=== PATIENT | male | born 1940 | race Caucasian/White ===

== ENCOUNTER → 2016-11-22 | Outpatient (CLI) | payer BC, OTHER ==
[~2016-11-22] MED LIST: ADAL40KI INJ; CALCTAB7 PO; CHOL1000 PO; CHOL100010 PO; FLM4 PO; LINE1TAB2 PO; LOSA100T33 PO; MULT-188 PO; MULT-513 PO; NAPR500T3 PO; OMEP20CA9 PO; PRED-301 PO; RISE1TAB33 PO; ZOLE5INJ IV
[2016-11-22 12:12] LABS: BLOOD UREA NITROGEN 16 mg/dl (7-18); BUN/CREATININE RATIO 17.2 (10-20); CALCIUM 9.2 mg/dl (8.5-10.1); CARBON DIOXIDE 27 mmol/L (21-32); CHLORIDE 105 mmol/L (98-107); CREATININE 0.92 mg/dl (0.60-1.40); GLUCOSE 89 mg/dl (70-99); POTASSIUM 3.8 mmol/L (3.5-5.1); SODIUM 140 mmol/L (136-145)
== END | disposition home or self-care (01) ==
LOC: C.LAB1850 10:44
PROVIDERS: ATTEND Internal Medicine
DX: M81.0 Age-related osteoporosis without current pathological fracture (principal); M06.09 Rheumatoid arthritis without rheumatoid factor, multiple sites

== ENCOUNTER → 2017-01-10 | Outpatient (CLI) | payer BC, OTHER ==
[~2017-01-10] MED LIST changes: +LOSA100T26 PO; -LOSA100T33 PO
[2017-01-10 10:00] LABS: HEMATOCRIT 37.3 % (42-52); MEAN CELL VOLUME 88.2 fL (80-100); MEAN PLATELET VOLUME 9.1 fL (7.4-10.4); PLATELET COUNT 198 K/uL (130-400); RED BLOOD COUNT 4.23 M/uL (4.7-6.1); WHITE BLOOD COUNT 5.17 K/uL (4.8-10.8)
[2017-01-10 10:21] LABS: BASO % 0.4 %; BASO ABS # 0.02 K/uL (0-0.2); COMPLETE YES; EOS % 6.4 %; LYMPH % 51.6 %; LYMPH ABS # 2.67 K/uL (1.2-3.4); MONO % 10.4 %; NEUT % 31.2 %
[2017-01-10 10:29] LABS: BLOOD UREA NITROGEN 18 mg/dl (7-18); CALCIUM 8.7 mg/dl (8.5-10.1); CARBON DIOXIDE 28 mmol/L (21-32); CHLORIDE 103 mmol/L (98-107); CREATININE 0.88 mg/dl (0.60-1.40); GLUCOSE 83 mg/dl (70-99); POTASSIUM 3.5 mmol/L (3.5-5.1); SODIUM 137 mmol/L (136-145)
[2017-01-10 10:39] LABS: ALT/SGPT 26 U/L (12-78); AST/SGOT 23 U/L (15-37); CHOLESTEROL 198 mg/dl (0-200); CHOLESTEROL/HDL RATIO 3.5; HDL CHOLESTEROL 57 mg/dl; LDL CHOLESTEROL CALCULATED 113 mg/dl; TRIGLYCERIDES 142 mg/dl (0-150); VERY LOW DENSITY LIPOPROT CALC 28 mg/dl
== END | disposition home or self-care (01) ==
LOC: C.LAB1850 09:22
PROVIDERS: ATTEND Internal Medicine
DX: E78.5 Hyperlipidemia, unspecified (principal); D64.9 Anemia, unspecified; M06.9 Rheumatoid arthritis, unspecified; E03.9 Hypothyroidism, unspecified

== ENCOUNTER → 2017-02-14 | Outpatient (CLI) | payer BC, OTHER ==
[2017-02-14 16:43] LABS: BLOOD UREA NITROGEN 23 mg/dl (7-18); BUN/CREATININE RATIO 23.3 (10-20); CALCIUM 9.3 mg/dl (8.5-10.1); CARBON DIOXIDE 28 mmol/L (21-32); CHLORIDE 106 mmol/L (98-107); CREATININE 0.98 mg/dl (0.60-1.40); GLUCOSE 113 mg/dl (70-99); POTASSIUM 3.9 mmol/L (3.5-5.1); SODIUM 142 mmol/L (136-145)
== END | disposition home or self-care (01) ==
LOC: C.LAB1850 15:14
PROVIDERS: ATTEND Internal Medicine
DX: I10 Essential (primary) hypertension (principal)

== ENCOUNTER → 2017-03-28 | Outpatient (CLI) | payer BC, OTHER ==
[~2017-03-28] MED LIST changes: -LOSA100T26 PO; +LOSA100T33 PO
== END | disposition home or self-care (01) ==
LOC: C.LAB1850 15:51
PROVIDERS: ATTEND Physician Assistant
DX: L03.115 Cellulitis of right lower limb (principal)

== ENCOUNTER → 2017-04-02 | Outpatient (CLI) | payer BC, OTHER ==
--- NOTE | 2017-04-02 10:24 | DIAGNOSTIC IMAGING REPORT ---
RIGHT FOOT MIN 3 VIEWS ROUTINE CLINICAL HISTORY: RT FOOT CELLULITIS Right pain. Infection. COMPARISON: None. DISCUSSION: Degenerative and postoperative changes throughout. Findings consistent with a fusion of the first metatarsophalangeal joint. Deformity of the distal aspects of the second through fifth metatarsals. Degenerative changes of the interphalangeal joints. No well-defined lytic or blastic process. IMPRESSION: Degenerative and postoperative change. No acute process. Electronically signed by: Tom Martinez M.D. 04/02/2017 10:23 AM Dictated Date/Time: 04/02/2017 10:22 AM
== END | disposition home or self-care (01) ==
LOC: C.RAD1850 10:07
PROVIDERS: ATTEND Physician Assistant
DX: L03.115 Cellulitis of right lower limb (principal)

== ENCOUNTER → 2017-05-08 | Outpatient (CLI) | payer BC, OTHER ==
[~2017-05-08] MED LIST changes: -MULT-513 PO; +OPTIRAY 320 IV PRN; -RISE1TAB33 PO
--- NOTE | 2017-05-08 11:59 | DIAGNOSTIC IMAGING REPORT ---
CT right foot RIGHT LOWER EXTREMITY WITH CLINICAL HISTORY: RIGHT FOOT, CELLULITIS, R/O ABSCESS Right TECHNIQUE: Transaxial acquisition with multi axial reformatted images COMPARISON STUDY: None FINDINGS: Operative changes of the posterior calcaneus. Operative changes of the distal metatarsals with evidence for fusion of the first metatarsophalangeal joint. Moderate generalized soft tissue edematous change. Probable synovitis surrounding regions of the great toe. No evidence for drainable abscess or collection. No evidence for bony destructive process. Postoperative changes consistent with partial resection of the distal aspects of the metatarsals are noted. This has been described previously. No evidence for fracture or dislocation. IMPRESSION: Degenerative and postoperative change throughout. 2. Findings consistent with a soft tissue cellulitis about the great toe with evidence for postoperative fusion of the first metatarsophalangeal joint. 3. No evidence for drainable abscess or collection. 4. No evidence for osteomyelitis based on CT criteria. Electronically signed by: Tom Martinez M.D. 05/08/2017 11:58 AM Dictated Date/Time: 05/08/2017 11:50 AM
== END | disposition home or self-care (01) ==
LOC: C.CTS 11:00
PROVIDERS: ATTEND Internal Medicine Infectious Disease
DX: L03.115 Cellulitis of right lower limb (principal)

== ENCOUNTER → 2017-05-14 | Outpatient (CLI) | payer BC, OTHER ==
[~2017-05-14] MED LIST changes: -CHOL1000 PO; -LINE1TAB2 PO; +LOSA100T26 PO; -LOSA100T33 PO; -OPTIRAY 320 IV PRN
[2017-05-14 16:42] LABS: BASO % 0.5 %; BASO ABS # 0.03 K/uL (0-0.2); COMPLETE YES; EOS % 1.2 %; HEMATOCRIT 40.3 % (42-52); IG% 0.2 %; LYMPH % 26.8 %; LYMPH ABS # 1.72 K/uL (1.2-3.4); MEAN CELL VOLUME 90.6 fL (80-100); MEAN CORPUSCULAR HEMOGLOBIN 29.4 pg (25-34); MEAN CORPUSCULAR HGB CONC 32.5 g/dl (32-36); MEAN PLATELET VOLUME 8.7 fL (7.4-10.4); MONO % 8.1 %; NEUT % 63.2 %; PLATELET COUNT 263 K/uL (130-400); RED BLOOD COUNT 4.45 M/uL (4.7-6.1); WHITE BLOOD COUNT 6.41 K/uL (4.8-10.8)
[2017-05-14 17:03] LABS: ALT/SGPT 25 U/L (12-78); BLOOD UREA NITROGEN 16 mg/dl (7-18); BUN/CREATININE RATIO 17.7 (10-20); C-REACTIVE PROTEIN 1.17 mg/dl (0-0.29); CARBON DIOXIDE 27 mmol/L (21-32); CHLORIDE 105 mmol/L (98-107); CREATININE 0.91 mg/dl (0.60-1.40); GLUCOSE 99 mg/dl (70-99); SODIUM 141 mmol/L (136-145)
[2017-05-14 17:07] LABS: ALB/GLOB RATIO 0.9 (0.9-2); ALKALINE PHOSPHATASE 107 U/L (45-117); AST/SGOT 22 U/L (15-37)
== END | disposition home or self-care (01) ==
LOC: C.LAB1850 15:55
PROVIDERS: ATTEND Physician Assistant
DX: B95.7 Other staphylococcus as the cause of diseases classified elsewhere (principal)

== ENCOUNTER → 2017-06-14 | Outpatient (CLI) | payer BC, OTHER ==
[~2017-06-14] MED LIST changes: +CHOL1000 PO; +LINE1TAB2 PO
[2017-06-14 10:05] LABS: BASO % 0.1 %; BASO ABS # 0.01 K/uL (0-0.2); COMPLETE YES; EOS % 3.5 %; HEMATOCRIT 32.3 % (42-52); IG% 0.1 %; LYMPH % 26.5 %; MEAN CELL VOLUME 90.5 fL (80-100); MEAN CORPUSCULAR HEMOGLOBIN 29.4 pg (25-34); MEAN CORPUSCULAR HGB CONC 32.5 g/dl (32-36); MEAN PLATELET VOLUME 8.5 fL (7.4-10.4); MONO % 7.8 %; PLATELET COUNT 161 K/uL (130-400); RED BLOOD COUNT 3.57 M/uL (4.7-6.1); WHITE BLOOD COUNT 7.17 K/uL (4.8-10.8)
[2017-06-14 10:44] LABS: ALT/SGPT 29 U/L (12-78); AST/SGOT 20 U/L (15-37); BLOOD UREA NITROGEN 17 mg/dl (7-18); BUN/CREATININE RATIO 17.6 (10-20); CALCIUM 8.8 mg/dl (8.5-10.1); CARBON DIOXIDE 28 mmol/L (21-32); CHLORIDE 107 mmol/L (98-107); CREATININE 0.94 mg/dl (0.60-1.40); GLUCOSE 106 mg/dl (70-99); POTASSIUM 3.6 mmol/L (3.5-5.1); SODIUM 140 mmol/L (136-145)
[2017-06-14 10:46] LABS: ALB/GLOB RATIO 0.9 (0.9-2); ALKALINE PHOSPHATASE 98 U/L (45-117); C-REACTIVE PROTEIN 1.59 mg/dl (0-0.29)
== END | disposition home or self-care (01) ==
LOC: C.LAB1850 09:31
PROVIDERS: ATTEND Physician Assistant
DX: L03.115 Cellulitis of right lower limb (principal)

== ENCOUNTER → 2017-06-28 | Outpatient (CLI) | payer BC, OTHER ==
[~2017-06-28] MED LIST changes: -CHOL100010 PO
[2017-06-28 12:35] LABS: BASO % 0.4 %; BASO ABS # 0.03 K/uL (0-0.2); COMPLETE YES; EOS % 2.8 %; HEMATOCRIT 30.9 % (42-52); IG% 0.4 %; LYMPH % 33.5 %; LYMPH ABS # 2.53 K/uL (1.2-3.4); MEAN CORPUSCULAR HEMOGLOBIN 29.2 pg (25-34); MEAN CORPUSCULAR HGB CONC 31.7 g/dl (32-36); MEAN PLATELET VOLUME 9.1 fL (7.4-10.4); MONO % 11.5 %; NEUT % 51.4 %; PLATELET COUNT 177 K/uL (130-400); RED BLOOD COUNT 3.36 M/uL (4.7-6.1); WHITE BLOOD COUNT 7.55 K/uL (4.8-10.8)
[2017-06-28 13:52] LABS: ALT/SGPT 29 U/L (12-78); AST/SGOT 21 U/L (15-37); BLOOD UREA NITROGEN 16 mg/dl (7-18); C-REACTIVE PROTEIN 0.33 mg/dl (0-0.29); CALCIUM 9.2 mg/dl (8.5-10.1); CARBON DIOXIDE 30 mmol/L (21-32); CHLORIDE 104 mmol/L (98-107); GLUCOSE 103 mg/dl (70-99); POTASSIUM 3.6 mmol/L (3.5-5.1); SODIUM 140 mmol/L (136-145)
[2017-06-28 13:54] LABS: ALB/GLOB RATIO 0.9 (0.9-2); ALKALINE PHOSPHATASE 99 U/L (45-117)
== END | disposition home or self-care (01) ==
LOC: C.LAB1850 11:21
PROVIDERS: ATTEND Physician Assistant
DX: L03.115 Cellulitis of right lower limb (principal)

== ENCOUNTER → 2017-07-04 | Outpatient (CLI) | payer BC, OTHER ==
[2017-07-04 11:57] LABS: BASO % 0.2 %; BASO ABS # 0.01 K/uL (0-0.2); COMPLETE YES; EOS % 2.8 %; HEMATOCRIT 31.4 % (42-52); IG% 0.2 %; LYMPH % 37.2 %; LYMPH ABS # 1.99 K/uL (1.2-3.4); MEAN CORPUSCULAR HEMOGLOBIN 30.5 pg (25-34); MEAN CORPUSCULAR HGB CONC 32.5 g/dl (32-36); MEAN PLATELET VOLUME 8.4 fL (7.4-10.4); MONO % 8.8 %; NEUT % 50.8 %; PLATELET COUNT 200 K/uL (130-400); RED BLOOD COUNT 3.34 M/uL (4.7-6.1); WHITE BLOOD COUNT 5.35 K/uL (4.8-10.8)
== END | disposition home or self-care (01) ==
LOC: C.LAB1850 10:06
PROVIDERS: ATTEND Urology
DX: Z00.00 Encounter for general adult medical examination without abnormal findings (principal); E03.9 Hypothyroidism, unspecified; L03.115 Cellulitis of right lower limb

== ENCOUNTER → 2017-07-08 | Outpatient (CLI) | payer BC, OTHER ==
[2017-07-08 11:00] LABS: CHOLESTEROL/HDL RATIO 2.2
== END | disposition home or self-care (01) ==
LOC: C.LAB1850 09:06
PROVIDERS: ATTEND Internal Medicine
DX: E78.5 Hyperlipidemia, unspecified (principal)

== ENCOUNTER 2017-07-12 11:57 | Day surgery (SDC) | payer BC, OTHER ==
--- NOTE | 2017-06-21 11:18 | PAT Medication Instructions ---
Service Date Jun 21, 2017. Current Home Medication List Adalimumab (Humira Pen), 40 MG INJ [id number] Calcium Carbonate-Vitamin D W/ (Caltrate 600 Plus), 1 TAB PO QAM Cholecalciferol (Vitamin D3), 1 TAB PO QAM Hctz/Losartan (Hyzaar 12.5MG/100MG), 1 TAB PO QAM Multiple Vitamins W/ Minerals (Ocuvite), 1 TAB PO QAM Naproxen (Naproxen), 500 MG PO QAM Omeprazole (Prilosec), 20 MG PO QAM Prednisone (Prednisone), 5 MG PO QAM Tamsulosin HCl (Tamsulosin HCl), 0.4 MG PO QPM Zoledronic Acid (Reclast), 5 MG IV DIRECTED Medication Instructions For Your Scheduled Surgery Adalimumab (Humira Pen), 40 MG INJ [id number] (currently on hold until surgery) Naproxen (Naproxen), 500 MG PO QAM (check with surgeon for instructions) Zoledronic Acid (Reclast), 5 MG IV DIRECTED (continue as directed) - Hold the following medications the morning of surgery: Calcium Carbonate-Vitamin D W/ (Caltrate 600 Plus), 1 TAB PO QAM Cholecalciferol (Vitamin D3), 1 TAB PO QAM Hctz/Losartan (Hyzaar 12.5MG/100MG), 1 TAB PO QAM Multiple Vitamins W/ Minerals (Ocuvite), 1 TAB PO QAM - Take the following medications the morning of surgery with a sip of water: Omeprazole (Prilosec), 20 MG PO QAM Prednisone (Prednisone), 5 MG PO QAM - Take the following medications as scheduled the night before surgery: Tamsulosin HCl (Tamsulosin HCl), 0.4 MG PO QPM If you have any questions please call us at [phone] or [phone] or [phone]
--- NOTE | 2017-06-21 12:11 | DIAGNOSTIC IMAGING REPORT ---
CHEST PREADMISSION(PA/LAT) CLINICAL HISTORY: PAT preoperative evaluation COMPARISON STUDY: 10/18/2014 FINDINGS: The bones soft tissues and hemidiaphragms are normal. The cardiomediastinal silhouette is normal. The lungs are clear. The pulmonary vasculature is normal. IMPRESSION: Negative chest. The above report was generated using voice recognition software. It may contain grammatical, syntax or spelling errors. Electronically signed by: Tom Martinez M.D. 06/21/2017 12:10 PM Dictated Date/Time: 06/21/2017 12:09 PM
--- NOTE | 2017-06-21 12:14 | DIAGNOSTIC IMAGING REPORT ---
CERVICAL SPINE 2 OR 3 VIEWS CLINICAL HISTORY: 76 years-old Male presenting with preop, rheumatoid arthritis. TECHNIQUE: Lateral view of the cervical spine in neutral, flexion, and extension positioning were performed. COMPARISON: None. FINDINGS: Normal cervical lordosis. Vertebral bodies maintain essentially normal height. 3 mm of anterolisthesis of C4 on C5 and rectal position that increases to 4 mm on flexion and decreases to 2 mm on extension. No other subluxation. Intervertebral disc height loss at C5-6 and C6-7, where there are the greatest degree of multilevel degenerative changes. No prevertebral soft tissue swelling. IMPRESSION: 3 mm of grade 1 anterolisthesis of C4 on C5 which increases and decreases on flexion and extension views respectively as described above. Electronically signed by: Humberto Frank M.D. 06/21/2017 12:12 PM Dictated Date/Time: 06/21/2017 12:09 PM
[2017-06-21 12:55] LABS: URINE APPEARANCE CLEAR (CLEAR); URINE BILIRUBIN NEG (NEG); URINE COLOR YELLOW; URINE NITRITE NEG (NEG); URINE SPECIFIC GRAVITY 1.014 (1.000-1.030); UROBILINOGEN NEG (NEG)
[2017-06-21 13:07] LABS: MANUAL MICROSCOPIC REQUIRED? NO; REVIEW REQ? NO
[2017-06-21 13:08] LABS: PROTHROMBIN TIME (PATIENT) 10.4 SECONDS (9.0-12.0)
--- NOTE | 2017-07-11 16:33 | History and Physical ---
History & Physical Date Jul 11, 2017. Chief Complaint right foot pain History of Present Illness The patient is a 76 year old male with complaints of right great toe pain. He has a hx of 1st MTP fusion and a Funes procedure of the lesser metatarsals. 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 He is being set up for surgical management of the great toe pain. Past Medical/Surgical History Medical Problems: (1) Diverticulosis Colon (W/O Ment Of Hemorrhage) (2) Hyperlipidemia Nec/Nos (3) Hyperlipidemia Nec/Nos (4) Hypertension Nos (5) Hypothyroidism Nos (6) Rheumatoid Arthritis Allergies Coded Allergies: Cephalexin (Verified Adverse Reaction, Intermediate, eye irritation and vision disturbances, 06/21/17) Home Medications Scheduled Adalimumab (Humira Pen), 40 MG INJ [id number] Calcium Carbonate-Vitamin D W/ (Caltrate 600 Plus), 1 TAB PO QAM Cholecalciferol (Vitamin D3), 1 TAB PO QAM Hctz/Losartan (Hyzaar 12.5MG/100MG), 1 TAB PO QAM Linezolid (Linezolid), 1 TAB PO BID Multiple Vitamins W/ Minerals (Ocuvite), 1 TAB PO QAM Naproxen (Naproxen), 500 MG PO QAM Omeprazole (Prilosec), 20 MG PO QAM Prednisone (Prednisone), 5 MG PO QAM Tamsulosin HCl (Tamsulosin HCl), 0.4 MG PO QPM Zoledronic Acid (Reclast), 5 MG IV DIRECTED Physical Examination Skin: warm/dry, no rash, + pertinent finding (Healed dorsal forefoot incisions on the right foot.) Eyes: normal inspection ENT: normal ENT inspection Head: normocephalic, atraumatic Neck: supple, trachea midline Respiratory/Chest: lungs clear, normal breath sounds, no respiratory distress Cardiovascular: regular rate, rhythm, no murmur Abdomen / GI: normal bowel sounds, non tender Extremities: + pertinent finding (Right foot: hallux interphalangeus. 1st MTP fusion. Tender at the great toe. Limited ROM and strength of the forefoot.) Neurologic/Psych: no motor/sensory deficits, alert, oriented x 3 Diagnosis Right hallux interphalangeus Right foot retained hardware. Plan of Treatment Recommend a right foot 1st great toe removal hardware, closing wedge osteotomy and fusion of the 1st IP Joint, possible autografting of fusion, possible calcaneal autograft harvest, application PRP, possible application Stimulan beads. All potential risks, benefits, complications, alternatives and rehab have been discussed with the patient and the patient wishes to proceed as indicated. He will be scheduled for 07.12.17.
[~2017-07-12] VITALS: Ht 167.6 cm; Wt 85.0 kg
[~2017-07-12 11:57] MED LIST changes: +ATROPINE SULFATE 0.1 MG/ML 5ML SYR IV PRN; +CEFAZOLIN 2000 MG/60 ML D5W IV SCH; +EpHEDrine SULFATE INJ 50 MG/ML AMP IV PRN; +FENTANYL CITRATE INJ 50 MCG/1 ML 2 ML VIAL IV PRN; +HYDROmorphone INJ 1 MG/ML SYR IV PRN; +LACTATED RINGER'S 1000ML 1,000 ML IV SCH; +ONDANSETRON INJ 2 MG/ML 2 ML VIAL IV PRN; +ROPIVACAINE 0.5% 5 MG/ML 30 ML VIAL ONE
--- NOTE | 2017-07-12 12:36 | History & Physical Bridge Note ---
H&P Re-Evaluation Bridge Note: I have examined the patient, reviewed the History & Physical and in the interval since the performance of the History & Physical I have noted the following changes of clinical significance: No changes noted
[2017-07-12 12:41] VITALS: BP 137/74; PULSE 64; TEMP 36.7; O2SAT 96; Ht 167.6 cm; Wt 85.0 kg
[2017-07-12] MEDS ORDERED: FENTANYL CITRATE INJ 50 MCG/1 ML 2 ML VIAL ONE (14:45)
[2017-07-12] MEDS ORDERED: MIDAZOLAM HCL 1 MG/ML 2ML VIAL ONE (14:45)
[2017-07-12] MEDS ORDERED: ONDANSETRON INJ 2 MG/ML 2 ML VIAL ONE (15:11)
[2017-07-12] MEDS ORDERED: DEXAMETHASONE SOD INJ 4 MG/ML VIAL ONE (15:11)
[2017-07-12] MEDS ORDERED: LIDOCAINE HCL 2% 2 ML VIAL (20MG/ML) ONE (15:11)
[2017-07-12] MEDS ORDERED: PROPOFOL IV EMULSION 10 MG/ML 20 ML VIAL IV ONE (15:11)
[2017-07-12] MEDS ORDERED: ROCURONIUM BROMIDE 10 MG/ML 5 ML VIAL IV ONE ×2 (15:11→15:12)
[2017-07-12] MEDS ORDERED: THROMBIN 5000 UNITS KIT ONE (15:52)
[2017-07-12] MEDS ORDERED: CALCIUM CHLORIDE 10% 10 ML SYR ONE (15:52)
[2017-07-12] MEDS ORDERED: BACITRACIN 50000 UNIT VIAL ONE (15:52)
[2017-07-12] MEDS ORDERED: VANCOMYCIN HCL 1000MG/20ML VIAL ONE (16:17)
[2017-07-12] MEDS ORDERED: GENTAMICIN SULFATE 40 MG/ML 2 ML VIAL ONE (16:17)
--- NOTE | 2017-07-12 18:05 | Discharge Instructions ---
Discharge Instructions Date of Service Jul 12, 2017. Admission Reason for Admission: Right Foot Retained Hardware, Hallux Valgus, Osteoarthritis Discharge Discharge Diagnosis / Problem: Right Foot Retained Hardware, Hallux Valgus, Osteoarthritis Discharge Goals Goal(s): Decrease discomfort, Improve function Activity Recommendations Activity Limitations: per Instructions/Follow-up section Weightbearing Status: Right non-weightbearing . Instructions / Follow-Up Instructions / Follow-Up ACTIVITY RECOMMENDATIONS: Limitations: No weight bearing to affected limb at all times. SPECIAL CARE INSTRUCTIONS: * Some drainage onto the dressing is normal and is no cause for alarm. * Some swelling is natural especially after walking. * When resting, keep your foot elevated above the level of your heart. * Call [facility] if you notice: -Increased drainage -Fever over 101 degrees F -Severe constant pain BANDAGE: * Leave bandage/cast in place unless otherwise directed. * Keep bandage/cast dry at all times. FOLLOW UP VISIT WITH DR. ZUNIGA If appointment is not already scheduled: Please call [facility] after you get home today to schedule a follow-up appointment for next week with Dr. Zuniga at . Current Hospital Diet Patient's current hospital diet: Discharge Diet Recommended Diet: AHA Diet (Heart Healthy) Procedures Procedures Performed: Right Foot Removal Retained hardware, Interphalangeal Joint Fusion, Application of Platelet-Rich Plasma; local graft Pending Studies Studies pending at discharge: no Laboratory Results Lipid Panel Test 07/08/17 09:08 Range/Units Triglycerides Level 67 0-150 mg/dl Cholesterol Level 151 0-200 mg/dl HDL Cholesterol 70 mg/dl Cholesterol/HDL Ratio 2.2 LDL Cholesterol, Calculated 68 mg/dl Medical Emergencies . Who to Call and When: Medical Emergencies: If at any time you feel your situation is an emergency, please call 911 immediately. . Non-Emergent Contact Non-Emergency issues call your: Surgeon Call Non-Emergent contact if: temperature is above 101, your pain is not controlled . "Provider Documentation" section prepared by Regulo Zuniga. . VTE Core Measure Inpt VTE Proph given/why not?: Other Anticoagulation (EC ASA 81mg PO daily)
--- NOTE | 2017-07-12 18:08 | [facility] Post Operative Brief Note ---
Immediate Operative Summary Operative Date Jul 12, 2017. Pre-Operative Diagnosis Right foot Interphalangeal joint DJD, Painful retained hardware Post-Operative Diagnosis Right foot Interphalangeal joint DJD, Painful retained hardware Procedure(s) Performed Right foot Interphalangeal Joint Fusion with Application Autograft; Application of Platelet-Rich Plasma Concentrate; Right Foot Removal Retained hardware; Surgeon Dr. Regulo Beavers Director Title Surgeon(s) Abimbola Campbell PAC Estimated Blood Loss 20ml Findings See Dict Specimens A: Explanted hardware Drains None Anesthesia GLMA w/ popliteal block Complication(s) None Disposition Recovery Room / PACU
--- NOTE | 2017-07-12 18:12 | DIAGNOSTIC IMAGING REPORT ---
RIGHT FOOT 2 VIEWS HISTORY: 76 years-old Male hardware removal of the right first digit the foot. COMPARISON: Right foot radiographs 04/02/2017 TECHNIQUE: 2 spot fluoroscopic images of the right foot were obtained utilizing 28.5 seconds of fluoroscopy time. FINDINGS/IMPRESSION: There has been interval removal of the plate and screw fusion hardware of the first metatarsal phalangeal joint. There has been interval placement of a cannulated screw oriented along the longitudinal axis of the first interphalangeal and metatarsal phalangeal joints. Soft tissue swelling is seen about the first digit. Alignment is satisfactory. Chronic changes are seen throughout the remaining metatarsal-phalangeal joints, unchanged. The above report was generated using voice recognition software. It may contain grammatical, syntax or spelling errors. Electronically signed by: Papo Quinn M.D. 07/12/2017 6:11 PM Dictated Date/Time: 07/12/2017 6:09 PM
[2017-07-12] MEDS ORDERED: PERCOCET HOME PACK PO ONE (18:15)
--- NOTE | 2017-07-12 18:43 | Anesthesiology Progress Note ---
Anesthesia Post Op Note Date & Time Jul 12, 2017 at 18:43 Vital Signs Pain Intensity: 0 Vital Signs Past 12 Hours Date Time Temp Pulse Resp B/P (MAP) Pulse Ox O2 Delivery O2 Flow Rate FiO2 07/12/17 18:35 62 14 107/54 96 Oxymask 10 07/12/17 18:25 67 15 114/61 96 Oxymask 10 07/12/17 18:15 36.8 75 17 118/63 96 Oxymask 10 07/12/17 12:41 36.7 64 18 137/74 (95) 96 Room Air Notes Mental Status: alert / awake / arousable, participated in evaluation Pt Amnestic to Procedure: Yes Nausea / Vomiting: adequately controlled Pain: adequately controlled Airway Patency, RR, SpO2: stable & adequate BP & HR: stable & adequate Hydration State: stable & adequate Anesthetic Complications: no major complications apparent
[2017-07-12 19:00] VITALS: BP 113/56; PULSE 68; TEMP 36.3; O2SAT 97
--- NOTE | 2017-07-12 19:05 | DIAGNOSTIC IMAGING REPORT ---
RIGHT FOOT 2 VIEWS CLINICAL HISTORY: 76 years-old Male presenting with post-op Right. TECHNIQUE: Frontal and lateral views of the right foot were obtained. COMPARISON: 04/02/2017. FINDINGS: Overlying plaster splint markedly degrades evaluation of underlying osseous detail. Within this limitation, interval removal of prior plate and screw fixation across the first metatarsophalangeal joint and placement of a leg screw across the interphalangeal joint of the first toe. Apparent osseous fusion of the first metatarsophalangeal joint. Deformities of the intertarsal heads noted. Chronic angular deformity of the neck of the fifth metatarsal may suggest prior fracture. IMPRESSION: Overlying plaster splint markedly degrades evaluation of underlying osseous detail. Postoperative changes of plate and screw fixation removal and lack screw placement across the interphalangeal joint of the first toe. Additional changes as above. Electronically signed by: Humberto Frank M.D. 07/12/2017 7:04 PM Dictated Date/Time: 07/12/2017 7:01 PM
[2017-07-12 19:35] VITALS: BP 129/60; PULSE 67; TEMP 36.4; O2SAT 95
--- NOTE | 2017-07-12 21:50 | OPERATIVE REPORT ---
DATE OF OPERATION: 07/12/2017 PREOPERATIVE DIAGNOSES: 1. Right interphalangeal joint degenerative joint disease. 2. Painful retained hardware of the right foot. POSTOPERATIVE DIAGNOSES: Same. PROCEDURE: 1. Right foot interphalangeal joint fusion with autografting. 2. Removal of hardware, first metatarsophalangeal joint. 3. Application of platelet rich plasma concentrate. SURGEON: Dr. Beavers. AS400 PROGRAMMER: Abimbola Campbell PA-C who was present for patient positioning, sterile prep and drape, management of retractors and instruments. He was present through the critical portions of the case including wound closure, application of sterile dressing and transport of the patient to recovery. ANESTHESIA: General LMA with popliteal block. SPECIMENS: None. DRAINS: None. COMPLICATIONS: None. BLOOD LOSS: 20 mL. PERTINENT HISTORY: This is a 76-year-old gentleman who had a prior first metatarsophalangeal joint fusion. This was successful and had several years of pain for use of his foot. He noticed, however, that his great toe was tipping into the second toe and was causing discomfort from painful rubbing between the first and second toes and difficulty with shoe wear. 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 He had attempted and failed other conservative measures including shoewear modification, activity modification, anti-inflammatories, rest, ice, elevation and lifestyle modification. He had failed all measures and had radiographic evidence of severe degenerative arthritis with deformity of the interphalangeal joint with loss of joint space. Subchondral sclerosis and subchondral cyst. The patient was then scheduled for surgery as indicated. DESCRIPTION OF PROCEDURE: All potential risks, benefits, complications, alternatives, rehab, potential for incomplete relief of symptoms, need for further surgery, DVT, PE, , persistent pain, swelling, scarring, weakness, neurovascular injury, wound complications, hardware failure, nonunion, malunion and bone fracture were discussed with the patient. The patient decided to proceed with the procedure as indicated. After popliteal block and adductor canal anesthetic was then performed in the preoperative holding area, the patient was then taken to the operative suite and placed supine on the operating room table. After review of the consent and identification of proper operative site, the patient was anesthetized and LMA was placed. Right lower extremity was then sterilely prepped and draped in usual fashion, elevated, and exsanguinated with an Esmarch bandage and Esmarch tourniquet was applied over sterile surgical towel at the level of the ankle. Next, a 15 blade scalpel was used to make an incision on the dorsum of the right foot over the first metatarsophalangeal joint at the site of the previous incision. This incision was then deepened through subcutaneous tissue. Meticulous hemostasis was achieved with electrocautery. Full thickness skin flaps were developed. The extensor tendon was then identified and freed, retracted. Next, the dorsal soft tissues and incised including the dorsal joint capsule revealing the plate and screws beneath it. These screws and plate were then removed with a screwdriver. The screw on the medial aspect of the foot was then also removed a small stab incision a 15 blade scalpel. Next after all these removed, these holes were then carefully curetted with a small curette and irrigated until clear with sterile normal saline with bacitracin. Next, the incision was then carried distally over the interphalangeal joint. The extensor tendon was then carefully retracted and protected and its insertion was then protected on the distal phalanx. The joint was then prepared using curette and rongeurs to remove the residuals of articular cartilage and remove any bone down to subchondral bone. This was then saved for a bone graft. This was irrigated with sterile normal saline and bacitracin. Next, the arthrodesis site was then carefully fashioned to the correct angulation. This was removed the hallux interphalangeus from the great toe. Initial consideration was made for osteotomy; however, in this case more bone was resected from the medial aspect to straighten the great toe into more appropriate anatomic alignment. Next, the joint surfaces were then drilled with a small 1.6 mm drill bit, irrigated with sterile normal saline and bacitracin and then fish scaled with a small metatarsal osteotome and mallet. Next, the patient's venous blood was then harvested in and out for platelet rich plasma concentrate and placed on the back table on a sterile container. Next, the 1.25 mm guide pin for the 4.0 cannulated screw set was then used to stabilize the interphalangeal joint, autograft was impacted into the fusion site and then a 50 mm long thread x 4.0 mm cannulated screw was then driven into the distal aspect of the great toe to the distal phalanx to stabilize and compress the interphalangeal joint and the bone graft. Platelet rich plasma concentrate was then placed into the fusion site and then injected around the flor-incisional tissues. This was then followed by closure of the medial and lateral fibers of the interphalangeal joint and the insertion site of the extensor hallucis longus. Next, the skin was then closed using 4-0 nylon sutures and then platelet rich plasma concentrate was injected into the soft tissues. Next, the sterile compressive forefoot dressing and bulky posterior splint was applied overwrapped with an Yanick wrap. Tourniquet was released, the patient was awakened and taken to recovery in stable condition. NOTE: The spinal radiographs were obtained prior to application of the soft tissue dressing and splint. I attest to the content of the Intraoperative Record and any orders documented therein. Any exception s are noted below.
== END 2017-07-12 20:00 | disposition home or self-care (01) ==
LOC: C.ACU 11:57
PROVIDERS: ATTEND Orthopaedic Surgery Sports Medicine
DX: M20.61 Acquired deformities of toe(s), unspecified, right foot (principal); M19.071 Primary osteoarthritis, right ankle and foot; T84.84XD Pain due to internal orthopedic prosthetic devices, implants and grafts, subsequent encounter; Y83.1 Surgical operation with implant of artificial internal device as the cause of abnormal reaction of the patient, or of later complication, without mention of misadventure at the time of the procedure; D64.9 Anemia, unspecified; I10 Essential (primary) hypertension
CPT/HCPCS: 0232T; 20680; 28755

== ENCOUNTER → 2018-02-12 | Outpatient (CLI) | payer BC, OTHER ==
[~2018-02-12] MED LIST changes: -ADAL40KI INJ; -ATROPINE SULFATE 0.1 MG/ML 5ML SYR IV PRN; -CEFAZOLIN 2000 MG/60 ML D5W IV SCH; -EpHEDrine SULFATE INJ 50 MG/ML AMP IV PRN; -FENTANYL CITRATE INJ 50 MCG/1 ML 2 ML VIAL IV PRN; -HYDROmorphone INJ 1 MG/ML SYR IV PRN; -LACTATED RINGER'S 1000ML 1,000 ML IV SCH; -LOSA100T26 PO; +LOSA100T33 PO; -NAPR500T3 PO; -ONDANSETRON INJ 2 MG/ML 2 ML VIAL IV PRN; -ROPIVACAINE 0.5% 5 MG/ML 30 ML VIAL ONE
[2018-02-12 12:57] LABS: CALCIUM 9.1 mg/dl (8.5-10.1); CREATININE 0.81 mg/dl (0.60-1.40)
[2018-02-15 05:22] LABS: QUANTIF MITOGEN-NIL 8.04 IU/ML; QUANTIFERON NEGATIVE (NEGATIVE); QUANTIFERON NIL 0.25 IU/ML
== END | disposition home or self-care (01) ==
LOC: C.LAB1850 11:00
PROVIDERS: ATTEND Internal Medicine
DX: M06.09 Rheumatoid arthritis without rheumatoid factor, multiple sites (principal); M81.0 Age-related osteoporosis without current pathological fracture

== ENCOUNTER → 2018-02-25 | Outpatient (CLI) | payer BC, OTHER ==
[2018-02-25 10:16] LABS: HEMATOCRIT 37.6 % (42-52); HEMOGLOBIN 12.5 g/dL (14.0-18.0); MEAN CELL VOLUME 87.4 fL (80-100); MEAN CORPUSCULAR HEMOGLOBIN 29.1 pg (25-34); MEAN CORPUSCULAR HGB CONC 33.2 g/dl (32-36); MEAN PLATELET VOLUME 8.9 fL (7.4-10.4); PLATELET COUNT 209 K/uL (130-400); RED CELL DISTRIBUTION WIDTH CV 14.1 % (11.5-14.5); RED CELL DISTRIBUTION WIDTH SD 45.2 fL (36.4-46.3); WHITE BLOOD COUNT 4.64 K/uL (4.8-10.8)
[2018-02-25 10:49] LABS: ALBUMIN 3.3 gm/dl (3.4-5.0); ALT/SGPT 25 U/L (12-78); AST/SGOT 21 U/L (15-37); BLOOD UREA NITROGEN 18 mg/dl (7-18); CARBON DIOXIDE 29 mmol/L (21-32); CREATININE 0.89 mg/dl (0.60-1.40); GLUCOSE 86 mg/dl (70-99); POTASSIUM 3.5 mmol/L (3.5-5.1); SODIUM 140 mmol/L (136-145)
[2018-02-25 11:00] LABS: ALKALINE PHOSPHATASE 59 U/L (45-117); CHOLESTEROL 191 mg/dl (0-200); LDL CHOLESTEROL CALCULATED 110 mg/dl; TOTAL PROTEIN 7.1 gm/dl (6.4-8.2)
== END | disposition home or self-care (01) ==
LOC: C.LAB1850 09:35
PROVIDERS: ATTEND Internal Medicine
DX: E78.5 Hyperlipidemia, unspecified (principal); I10 Essential (primary) hypertension; E03.9 Hypothyroidism, unspecified

== ENCOUNTER → 2018-03-10 | Outpatient (CLI) | payer BC, OTHER | END | disposition home or self-care (01) | LOC: C.MAMM 11:17 | PROVIDERS: ATTEND Internal Medicine | DX: M81.0 Age-related osteoporosis without current pathological fracture (principal) ==

== ENCOUNTER 2021-01-11 07:03 | Observation (INO) ==
[2021-01-11] MEDS ORDERED: niCARdipine HCL INJ 2.5 MG/ML 10 ML AMP ONE (07:30)
[2021-01-11] MEDS ORDERED: HEPARIN (PORCINE) 1000 UNIT/ML 10 ML (CATH LAB USE ONLY) ONE ×2 (07:30→10:54)
[2021-01-11] MEDS ORDERED: MIDAZOLAM HCL 1 MG/ML 2ML VIAL ONE ×3 (07:30→10:07)
[2021-01-11] MEDS ORDERED: fentaNYL citrate 100 MCG/2 ML VIAL ONE ×2 (07:30→10:06)
[2021-01-11] MEDS ORDERED: NITROGLYCERIN/D5W 100MCG/ML 20ML SYR ONE (07:31)
--- NOTE | 2021-01-11 07:57 | History & Physical Report ---
Date of Service January 11, 2021 Assessment & Plan (1) Abnormal stress echo: (1) Abnormal stress echo: (2) Chest pain: (3) Aortic regurgitation: Plan - Kilo Hyatt MD: 1. Abnormal dobutamine echocardiogram: with transient ischemic dilation on his dobutamine echocardiogram he was suspected of having severe ischemia. He was started on medical therapy with metoprolol. He did have some lower heart rates which have not produced symptoms. However, he continues to have symptoms of exertional chest pressure and some trepidation about continuing exercise or exercising more vigorously. Again, we discussed options for treatment and evaluation. He is very concerned that he has an element of coronary artery disease that is not well characterized on his stress testing. He is concerned about recurrent symptoms on medical therapy. We did discuss intensifying his medical regimen or performing coronary angiography. He would prefer to perform angiography. We will again approaches insurance company about approval. He will continue aspirin and metoprolol currently. 2. chest pain: Primarily exertional. Concern for angina given his abnormal dobutamine echocardiogram. 3. Aortic insufficiency: Mild. This can be monitored over time. History of Present Illness Chief Complaint: chest [ain Primary Care Provider: Richardson Becerra MD the patient is a 72-year-old gentleman without a known history of cardiac disease who originally underwent dobutamine echocardiography for symptoms of exertional chest pain. His stress test was not normal. He did have transient ischemic dilation on echo cardiography suggestive of severe coronary disease. He was started on medical therapy. The plan was for coronary angiography, but his insurance provider required a trial of medical therapy 1st. Patient returns today to discuss recurrent symptoms and abnormal blood pressure and pulse readings. He was started on metoprolol. He has a watch track of his heart rates. He has noted some fluctuations in his blood pressure but more concerning to him were low heart rate readings in the sap basis architect hours. During the da ys heart rates appear to be normal. He did not describe symptoms of dizziness or lightheadedness. No presyncope. No palpitations. He does have some symptoms of exertional chest discomfort. He walks regularly around the [employer] [facility] [employer]. With rapid walking he does have symptoms of exertional chest pressure which resolved as he reduces his pace. He has some concerns about exercising more vigorously. No rest symptoms. Allergies Allergy/AdvReac Type Severity Reaction Status Date / Time alendronate sodium Allergy Verified 12/06/20 10:43 cephalexin AdvReac Intermediate eye Verified 12/06/20 10:43 irritation and vision disturbances Home Medications Medication Instructions Recorded Confirmed Type cholecalciferol (vitamin D3) 50 2,000 unit PO .Take 1 tablet daily 05/19/19 01/11/21 History mcg (2,000 unit) tablet tab calcium carbonate 600 mg (1,500 600 tab PO .TAKE 1 TABLET DAILY. 07/15/19 01/11/21 History mg)-vitamin D3 200 unit tablet tab multivitamin 1 tab PO DAILY 07/15/19 01/11/21 History vit C 50 mg-E 15 unit-zinc cit 4.5 2 tab PO DAILY 07/15/19 01/11/21 History mg-lutein 2.5 mg-zeaxan chew tablet hydrochlorothiazide 12.5 mg tablet 12.5 mg PO DAILY #90 tab 02/24/20 01/11/21 Rx losartan 100 mg tablet 100 mg PO DAILY #90 tab 02/24/20 01/11/21 Rx tamsulosin 0.4 mg capsule 0.4 mg PO DAILY #90 cap 05/04/20 01/11/21 Rx omeprazole 20 mg capsule,delayed 20 mg PO DAILY #90 cap 06/20/20 01/11/21 Rx release lifitegrast 5 % eye drops in a 1 drp OPHTHALMIC (EYE) BID 09/16/20 01/11/21 History dropperette naproxen 500 mg tablet 500 mg PO DAILY #90 tab 09/16/20 01/11/21 Rx prednisone 5 mg tablet 5 mg PO DAILY #90 tab 09/16/20 01/11/21 Rx aspirin 81 mg tablet,delayed 81 mg PO DAILY 10/24/20 01/11/21 History release metoprolol succinate 25 mg 12.5 mg PO DAILY #30 tab 10/24/20 01/11/21 Rx tablet,extended release 24 hr adalimumab 40 mg/0.8 mL See Rx Instructions SQ .COMPLEX #3 12/22/20 01/11/21 Rx subcutaneous syringe kit ml Past Med/Surg History Medical History Rheumatoid arthritis Steroid-induced osteoporosis Surgical History H/O inguinal hernia repair History of appendectomy History of tonsillectomy and adenoidectomy Family History Mother Colon cancer Congestive heart failure Stroke syndrome Father Diabetes Son Diabetes Daughter Breast cancer Grandfather (Paternal) Myocardial infarction Denies family history of Ovarian cancer Prostate cancer Social History Smoking Status: Former smoker Second Hand Exposure: No; Hx Alcohol Use: No Hx Substance Use: No Preferred Language: [place] Communication Ability: Effective Visual Impairment: No Limitations Hearing Ability: Use of Hearing Aid Range Master Required: No Beliefs That Will Affect Care: None marital status: / Current Living Situation: Alone current occupational status: retired Other Information That Helps Us Care for You: No Feels Safe at Home: Yes Safety Concerns: Feels Safe At This Time Childhood Exposure to Second-Hand Smoke: No Dental Care, Regularly: Yes Physical Activity Frequency: Does not Exercise Seatbelt Use: always Sunscreen Use: No Assistive Devices: Glasses, Hearing Aid - Left and Hearing Aid - Right Review of Systems Review of Systems: per HPI Physical Exam Physical Exam: Alert.Oriented. Normal respiratory effort Regular rhythm and normal heart rate No edema Results & Data Results & Data ([facility]) Vital Signs (Past 12 Hours) Vital Signs Temp Pulse Resp BP Pulse Ox 01/11/21 07:15 36.6 C 62 20 150/87 H 97
--- NOTE | 2021-01-11 07:59 | Pre Anesthesia Assessment ---
Date of Service January 11, 2021 Pre Sedation Assessment Vital Signs Temp Pulse Resp BP Pulse Ox 01/11/21 07:15 36.6 C 62 20 150/87 H 97 Cardiovascular + regular rate and + regular rhythm Respiratory + respiratory effort normal Pre-Sedation Airway Assessment Smoking Status: Former smoker Hx Sleep Apnea: No Hx Difficult Intubation: No Short, Thick Neck: No Thyromental Distance: > or= 3.5 Finger Breadths Oral Cavity: + WNL Mallampati Class: III ASA: ASA3 NPO Status Date of Last Intake of Fluids: 01/10/21 Time of Last Intake of Fluids: 22:00 Date of Last Intake of Solid Food: 01/10/21 Time of Last Intake of Solid Foods: 22:00 Procedure Planning Contraindications for Sedation: none Current Medications Reviewed: Yes Notes The planned sedation has been discussed with the patient. Informed Consent was obtained. I have identified the patient, determined the appropriateness of sedation and have assessed the patient immediately prior to the procedure. All medicine(s) and interventions are by my order.
--- NOTE | 2021-01-11 11:14 | Cardiac Catheterization ---
[facility] Data: Cement Paver Cardiac Status Clinical evaluation leading to the procedure CAD Presenation: Positive Stress Test Diagnostic Physicians Name: Kilo Hyatt MD Closure Device Recommendations: PCI without planned CABG Cardiac Cath Procedure Full Procedure Date January 11, 2021 Pre-Procedure Diagnosis Pre-Procedure Diagnosis: Positive Stress Test AUC Score AUC Score: 7 Post-Procedure Diagnosis Post-Procedure Diagnosis: Severe CAD Procedure(s) Performed Procedure(s) Performed: Coronary Angiography and Left Heart Cath Flame Cutting Supervisor Kilo Hyatt MD Utility Arborist(s) none Estimated Blood Loss Estimated Blood Loss: 20cc Medication(s) Medication(s): Fentanyl, Heparin, Lidocaine 1%, Nicardipine, Nitroglycerin and Versed Summary of Findings Procedure performed: Left heart catheterization, selective coronary angiography Staff integrity assessor: Kilo Hyatt MD Indication: The patient is a 80-year-old gentleman who has been experiencing symptoms of exertional chest discomfort. He did undergo outpatient stress testing which was abnormal. Medical therapy was tried prior to referral for coronary angiography. Procedure in detail: The patient was informed of the risk benefits and alternatives to the intended procedure. He understood and wished to proceed. He was taken to the cardiac catheterization suite in a fasting state. Conscious sedation was administered per protocol and the patient was monitored electrocardiographically throughout today's procedure. The right radial area was prepped and draped in usual sterile fashion. This area was anesthetized using subcutaneous ministration of a lidocaine solution. Right radial artery was accessed using Seldinger technique and sheath was placed over guidewire at the site. The sheath was used to felt a passage of the cardiac catheters in attempt to perform selective coronary angiography. However, due to tortuosity in the right subclavian the coronaries could not be engaged from this route. Catheters and sheath were removed from the site and hemostasis was achieved using manual pressure. Left radial artery was subsequently prepped and draped in usual sterile fashion. Area over the left radial artery was subsequently anesthetized using subcutaneous ministration of lidocaine solution. A left lateral artery was then accessed using Seldinger technique and a sheath was placed over guidewire at this site. The sheath was used to facilitate passage of a guidewire and catheter. However, there appeared to be significant tortuosity of the brachial artery which prevented passage of the catheter. Catheter in guidewire were removed. Sheath was also removed and hemostasis was achieved at the left radial artery using manual pressure. The right femoral area was prepped and draped in usual sterile fashion. This area was anesthetized using subcutaneous ministration of lidocaine solution. The right femoral artery was subsequently accessed using modified Seldinger technique and a sheath was placed over guidewire at this site. The sheath was used to facilitate passage of the cardiac catheters for selective coronary angiography. Angiography was obtained in multiple orthogonal views prior to removal of the catheters. At 1 point the 5 [place] 4 catheter became kinked. The entire sheath and catheter had to be removed through the femoral artery at this point. This sheath was cut and a guidewire was placed through the remaining sheath to maintain access. A larger sheath was placed over this guidewire in order to improve hemostasis. There was a small hematoma formation at this point. Manual pressure was also employed in order to reduce bleeding at this site prior to continuation of the procedure. With the exception of this problem there were no additional complications. Based on the results of his angiography he was referred for percutaneous intervention. Equipment used: 5 Dutch 3 DRC 5 Dutch [place] 2 Findings Coronary angiography Left main: The left main was somewhat patulous and very short. It did bifurcate into the left circumflex and left anterior descending artery. Left anterior descending colon left anterior descending appeared to be subtotally occluded. There was a very large diagonal branch with a complex lesion proximal portion. This was estimated at 90%. The actual LAD appeared to be subtotally occluded and not fully filled with contrast. Overall it appeared to be a small vessel and likely fills from left to left collaterals. Left circumflex: Left circumflex was a dominant vessel. He did have a discrete 70% stenosis at the origin of the left-sided PDA. The remaining vessel had luminal irregularities and was quite tortuous but no other discrete lesions. Right coronary artery: Nondominant. 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 Any exceptions are noted below. [facility] Card Cath Procedure Codes Cardiac Catheterization Procedure 1: Cardiovascular Cath Procedures: 24955 Coronaries and LHC (+/-LV) Moderate Sedation Procedure 1: Sedation/Anesthesia: 45126 Mod Sedation by the same physician;Init15 Min Child Age 5 & Up Procedure 2: Sedation/Anesthesia: 32700 Mod Sedation by the same physician; Ea [id number] Minutes PG Care Time/CCT Total # of Minutes Spent Total Time Spent with Patient: Total time spent is greater than 50% in coordination of care (as documented) at patient's floor/unit and/or counseling patient:
[2021-01-11] MEDS ORDERED: CLOPIDOGREL BISULFATE 300 MG TAB ONE (11:17)
[2021-01-11] MEDS ORDERED: ONDANSETRON INJ 2 MG/ML 2 ML VIAL IV PRN (11:31)
[2021-01-11] MEDS ORDERED: NITROGLYCERIN SL 0.4 MG/TAB TAB SL PRN (11:31)
--- NOTE | 2021-01-11 11:31 | Post Anesthesia Assessment ---
Date of Service January 11, 2021 Post Sedation Assessment Vital Signs Temp Pulse Resp BP Pulse Ox 01/11/21 07:15 97.9 F 62 20 150/87 H 97 Recovery Score Activity: Moves 4 extremities Respiration: Deep Breath/Cough Circulation: +/-20% PreAnes Value Consciousness: Fully Awake Oxygen Saturation: O2 needed for >90% Discharge Sedation Level of Care: Fast Track Phase II Post Sedation Plan On clinical assessment, the patient appears to have tolerated the sedation without complications. Patient is recovering as anticipated. Patient will continue to be monitored by nursing and may be discharged when sedation discharge criteria are met per below protocol. Upon Completions of procedure up to 15 minutes continue every 5 minute vital signs and the P.A.R. score; then discharge to a Phase I or Fast Track to Phase I I per the following guidelines: * Discharge Patient to appropriate Phase II area if PAR is 8 or greater or return to pre- procedure baseline. The post - procedure orders will be as directed. * If PAR score is less than 8 or not return to pre-procedure baseline then patient will follow Phase I monitoring till PAR is reached for Phase II. The Phase I may be done in procedure room or may call to secure a Phase I area. * If naloxone or flumazenil are used for reversal, hold in Phase I for continued monitoring from when last reversal dose was given for a minimum of 60 minutes or longer pending the nurse and/or physician discretion of patient condition before discharge to Phase II. Please call the Sedation Physician to re-evaluate and complete post-note for discharge to Phase II area. Do NOT discharge from procedure sedation or Phase 1 until post- sedation evaluation note is complete by procedure /sedation MD Sedation Discharge Instructions to be given to the patient at discharge to home.
[2021-01-11] MEDS ORDERED: SODIUM CHLORIDE 0.9% 1000ML 1,000 ML IV SCH (11:45)
--- NOTE | 2021-01-11 12:09 | Cardiac Catheterization ---
[facility] Data: Chief Medical Technologist Cardiac Status Clinical evaluation leading to the procedure CAD Presenation: Positive Stress Test and Unstable angina Anginal Classification: CCS III Heart Failure: No Cardiogenic Shock within 24 Hours: No Cardiac Arrest within 24 Hours: No Imaging Studies Past 6 Months: Yes Stress Studies Past 6 Months: Yes Stress Testing w/SPECT MPI: Risk/Extent of Ischemia (High) Diagnostic Physicians Name: Kilo Diana MD Status: Elective Closure Device Percutaneous Entry Location: Femoral Closure Device: Angio-Seal Recommendations: PCI without planned CABG PCI Indication: + Stress Test Lesion Segment Name: proximal diagonal Culprit Artery: Yes Stenosis Prior to Rx (%): 90 Chronic Total Occlusion: No IVUS: No FFR: No Pre-Procedure YOANDY Flow: 3 Previously Treated Lesion: No Lesion Complexity: Non-High/Non-C Lesion Length (mm): 15 Thrombus Present: No Bifurcation Lesion: No Guidewire Across Lesion: Stenosis Post-Procedure (%): 0 Post-Procedure YOANDY Flow: 3 Yes Intraprocedure Events Significant Disection: No Perforation: No Cardiac Cath Procedure Full Procedure Date January 11, 2021 Pre-Procedure Diagnosis Pre-Procedure Diagnosis: Positive Stress Test AUC Score AUC Score: 7 Post-Procedure Diagnosis Post-Procedure Diagnosis: Severe CAD and Successful PCI Procedure(s) Performed Procedure(s) Performed: Coronary Angiography and Drug Eluting Stent Client Delivery Specialist Kilo Diana MD Wildlife Conservation Officer(s) [place] Estimated Blood Loss Estimated Blood Loss: 20cc Medication(s) Medication(s): Clopidogrel, Fentanyl, Heparin, Lidocaine 1%, Nicardipine, Nitroglycerin and Versed Summary of Findings Indication: Angina, abnormal stress test Access: 6 Fr 45 cm destination sheath due to tortuosity in the right common femoral artery Catheters: EBU 3.75 guide Findings: For full details of patient's coronary angiography please see cath report dictated by Dr. Hyatt. Briefly, patient found to have a chronically occluded mid LAD that fills via collaterals and a large diagonal with an 80% proximal stenosis. -- PCI -- Antithrombotic therapy: Heparin, clopidogrel Procedure: Left main cannulated with EBU 3.75 guide Mid LAD CHEESE MAKER appeared short with questionable channel. Attempt made to wire across occlusion with whisper, towboat pilot 50 wire and aid of OTW support balloon. Occlusion appeared flush with LAD and never able to make progress crossing occlusion and attention turned to diagonal. Volleyball Assistant Coach 50 wire passed across diagonal lesion into distal vessel Diagonal lesion predilated with 2.75 compliant balloon Dilated lesion stented with 3.0 x 18 mm [place] drug-eluting stent Stent post-dilated with three-point noncompliant balloon IC vasodilators administered for spasm Post procedure YOANDY 3 flow, stent well expanded with minimal residual stenosis and no apparent cardiac complications. Arterial Closure: TR band Summary: 1. Successful PCI of proximal large D1 with 3.0 x 18 mm [place] drug-eluting. 2. Mid LAD chronic total occlusion fills via left to left collaterals. Unsuccessful attempt to cross antegrade. Recommendations: To PCU for continued monitoring Loaded with clopidogrel 600 mg in Chief Medical Technologist Continue dual-antiplatelet therapy for at least 1 year Consult cardiac Rehab Continue antianginal therapy. If refractory symptoms in the future consider CTOPCI at tertiary center versus CABG evaluation for chronically occluded LAD. Hemodynamics Rest Ao:: 133/79/106 Final Ao: 143/75/104 LV: -- Recommendations Recommendations: PCI without planned CABG Specimens Specimens: None Radiation Exposure (mGy) 867 Contrast (mls) 50 Drains Drains: none Anesthesia moderate Procedural Complication(s) None Development of small femoral hematoma during sheath exchange Disposition PCU I attest to the content of the Intraoperative Record and any orders documented therein. Any exceptions are noted below. [facility] Card Cath Procedure Codes Moderate Sedation Procedure 1: Sedation/Anesthesia: 06495 Mod Sedation by the same physician; Ea [id number] Minutes Stenting Procedure 1: Cardiovascular Stent Procedures: 74195 Perc transcatheter placement of intracoronary stent(s), with ang PG Care Time/CCT Total # of Minutes Spent Total Time Spent with Patient: Total time spent is greater than 50% in coordination of care (as documented) at patient's floor/unit and/or counseling patient:
[2021-01-11] MEDS: ACETAMINOPHEN 325 MG TAB PO PRN ×2 (13:00→21:19)
[2021-01-11] MEDS ORDERED: NITROGLYCERIN 2% OINTMENT 30GM TUBE EXT STA (13:11)
[2021-01-11] MEDS ORDERED: NITROGLYCERIN 2% OINTMENT 30GM TUBE ONE (13:13)
[2021-01-11] MEDS ORDERED: LOSARTAN POTASSIUM 50 MG TAB PO ONE (15:30)
--- NOTE | 2021-01-11 17:03 | Electrocardiogram Report ---
Test Reason : Blood Pressure : / mmHG Vent. Rate : 053 BPM Atrial Rate : 053 BPM P-R Int : 168 ms QRS Dur : 092 ms QT Int : 466 ms P-R-T Axes : 049 002 -08 degrees QTc Int : 437 ms Sinus bradycardia Abnormal ECG When compared with ECG of 21-JUN-2017 11:32, No significant change was found Confirmed by Kilo Hyatt ([id number]) on 01/11/2021 5:02:45 PM Referred By: Arnoldo Hyatt Confirmed By:Hernando Hyatt
[2021-01-12] MEDS ORDERED: SODIUM CHLORIDE 0.65% NA SOLN 45 ML (OCEAN) ONE (04:44)
[2021-01-12 07:08] LABS: Basophils # (auto) 0.02 K/uL (0-0.2); Basophils % (auto) 0.3 %; Eosinophils # (auto) 0.24 K/uL (0-0.5); Eosinophils % (auto) 3.5 %; Hematocrit (blood only) 32.5 % (42-52); Hemoglobin 10.6 g/dL (14.0-18.0); Lymphocytes # (auto) 1.29 K/uL (1.2-3.4); Lymphocytes % (auto) 18.6 %; Mean Corpuscular Hemoglobin 28.4 pg (25-34); Mean Corpuscular Hgb Conc 32.6 g/dL (32-36); Mean Corpuscular Volume 87.1 fL (80-100); Mean Platelet Volume 8.5 fL (7.4-10.4); Monocytes % (auto) 10.1 %; Neutrophils # (auto) 4.68 K/uL (1.4-6.5); Neutrophils % (auto) 67.5 %; Platelet Count 233 K/uL (130-400); RDW Coefficient of Variation 14.1 % (11.5-14.5); RDW Standard Deviation 44.5 fL (36.4-46.3); Red Blood Count 3.73 M/uL (4.7-6.1); White Blood Count 6.93 K/uL (4.8-10.8)
[2021-01-12 07:32] LABS: BUN Creatinine Ratio 18.6 (10-20); Calcium 8.9 mg/dl (8.5-10.1); Creatinine Clr Calc Pharmacy 81.9 ml/min; Est GFR (African American) 101.3; Est GFR (Non-African American) 87.4; Potassium 3.8 mmol/L (3.5-5.1)
[2021-01-12] MEDS ORDERED: ASPIRIN 81 MG ECTAB PO SCH (09:00)
[2021-01-12] MEDS ORDERED: CALCIUM 600MG + VIT D 400 IU TAB PO SCH (09:00)
[2021-01-12] MEDS ORDERED: CEROVITE ADV FORMULA TAB PO SCH (09:00)
[2021-01-12] MEDS ORDERED: TAMSULOSIN HCL 0.4 MG CAP PO SCH (09:00)
[2021-01-12] MEDS ORDERED: DOCUSATE CALCIUM 240 MG CAPSULE PO ONE (09:00)
[2021-01-12] MEDS ORDERED: LOSARTAN POTASSIUM 50 MG TAB PO SCH (09:00)
[2021-01-12] MEDS ORDERED: predniSONE 5 MG TAB PO SCH (09:00)
[2021-01-12] MEDS ORDERED: MULTIVITAMIN TAB PO SCH (09:00)
[2021-01-12] MEDS ORDERED: PANTOprazole 40 MG TAB PO SCH (09:00)
[2021-01-12] MEDS ORDERED: hydroCHLOROthiazide 25 MG TAB PO SCH (09:00)
[2021-01-12] MEDS ORDERED: CHOLECALCIFEROL 1,000 UNITS 25 MCG TAB PO SCH (09:00)
[2021-01-12] MEDS ORDERED: METOPROLOL SUCC 25MG EXT REL TAB PO SCH (09:00)
[2021-01-12] MEDS ORDERED: CLOPIDOGREL BISULFATE 75 MG TAB PO SCH (09:00)
--- NOTE | 2021-01-12 16:42 | Discharge Summary ---
Date of Service January 12, 2021 Admission HPI Per Admitting Provider The patient is a 72-year-old gentleman with a history of exertional chest discomfort and abnormal stress test. He was tried on medical therapy but continued to have symptoms. He was therefore advised to consider coronary angiography for additional diagnosis. Principal Diagnosis q Discharge Exam On the day of discharge the right groin area had a small hematoma. There was no bruit on auscultation. Minimal ecchymosis. Both radial arteries were palpable. There is good perfusion of both hands. Discharge Data Allergies Allergy/AdvReac Type Severity Reaction Status Date / Time alendronate sodium Allergy Verified 12/06/20 10:43 cephalexin AdvReac Intermediate eye Verified 12/06/20 10:43 irritation and vision disturbances Consultations 01/11/21 11:38 Consult Cardiac Rehabilitation Routine Procedures Performed Operation Date: 01/11/21 08:00 Actual Procedures p Cath, Left with Cors and Vent - Arnoldo Hyatt MD s Drug Eluting Stent SGl Vessel - Arnoldo Diana MD s Cineradiography w/Routine Exam - Arnoldo Hyatt MD Ordered Studies 01/11/21 06:48 CL Cath Imgs for PACS use only Routine Hospital Course (1) Coronary artery disease: On the day of admission the patient underwent coronary angiography. There was significant difficulty manipulating catheters via the radial approach. He had significant tortuosity in the right subclavian artery which prevented cannulation of the coronary arteries. A cardiac catheter could not be passed proximal to the left brachial artery. Right femoral arterial access was employed for diagnostic angiography and percutaneous intervention involving a large diagonal branch. The patient did have a development of a small hematoma at the right groin access site. However, on the day of discharge he was ambulatory without significant symptom. There is no evidence of active bleeding or other complication at the access sites. Total Time Total Time Spent Total Time Spent (In Minutes): 15 Total Time Includes: Examination of the Patient, Discharge Planning, Medication Reconciliation and Communication With Other Providers Discharge Plan Discharge Items Patient Disposition: Home - Self-Care Reason For Visit: Abnormal Stress Test,ANGINA Discharge Diagnosis: Angina Activity: Per Instructions section Activity Comment: NO lifting >10# or straining for 7 days Bathing Comment: no soaking groin, can bathe normally Driving/Machine Use: Resume 1 day after discharge Non-emergency contact: Spear Fisher Call non-emergency contact if: you have any medication questions, your symptoms worsen and your pain is not controlled Follow-up/Referrals: Rcihardson Becerra MD [Primary Care Provider] - 01/20/21 4:00 pm Diet: Heart Healthy Addtl Attending Provider Instructions: none Pending Studies at Discharge: No Stand-Alone Forms: My [facility] [email or web address], Smoking Cessation Medications and DC Order Prescriptions: New clopidogrel 75 mg Tablet 75 mg PO QAM Qty: 90 RF: 3 Continued losartan 100 mg tablet 100 mg PO DAILY Qty: 90 RF: 3 hydrochlorothiazide 12.5 mg tablet 12.5 mg PO DAILY Qty: 90 RF: 3 omeprazole 20 mg capsule,delayed release(DR/EC) 20 mg PO DAILY Qty: 90 RF: 3 Humira 40 mg/0.8 mL syringe kit See Rx Instructions SQ .COMPLEX Qty: 3 RF: 5 cholecalciferol (vitamin D3) 2,000 unit tablet 2,000 unit PO .Take 1 tablet daily RF: 0 calcium carbonate-vitamin D3 600 mg(1,500mg) -200 unit tablet 600 tab PO .TAKE 1 TABLET DAILY. RF: 0 multivitamin [Daily Multi-Vitamin] tablet 1 tab PO DAILY RF: 0 Ocuvite Eye Health 50 mg-15 unit- 4.5 mg-2.5 mg tablet,chewable 2 tab PO DAILY RF: 0 Xiidra 5 % dropperette 1 drp ophthalmic (eye) BID RF: 0 naproxen 500 mg tablet 500 mg PO DAILY Qty: 90 RF: 3 prednisone 5 mg tablet 5 mg PO DAILY Qty: 90 RF: 3 aspirin 81 mg tablet,delayed release (DR/EC) 81 mg PO DAILY RF: 0 metoprolol succinate 25 mg tablet extended release 24 hr 12.5 mg PO DAILY Qty: 30 RF: 2 tamsulosin 0.4 mg capsule 0.4 mg PO DAILY Qty: 90 RF: 3 Discharge Orders: Discharge Order (Routine); Ordered 01/12/21 Ordered By: Arnoldo Hyatt Admission Data Admit Date/Time: 01/11/21 11:14 Attending Provider: Arnoldo Hyatt Admit Provider: Arnoldo Hyatt Primary Care Provider: Richardson Becerra Other Interventions: Discharge Summary Assessment (RN) Last Done: 01/12/21 10:17 Coding Level of Care Code 84173 OBS Care - Discharge Diagnoses Coronary artery disease I25.10
== END 2021-01-12 11:13 | disposition home or self-care (01) ==
LOC: CC 07:03 → 2S 07:03

== ENCOUNTER 2023-06-03 12:24 | Inpatient (IN) ==
[2023-06-03] MEDS ORDERED: MAGNESIUM SULFATE / D5W 1 GM/100 ML BAG IV STA (12:41)
[2023-06-03] MEDS ORDERED: dilTIAZem HCl 5 MG/ML 5 ML VIAL IV STA (12:41)
[2023-06-03] MEDS ORDERED: SODIUM CHLORIDE 0.9% 500 ML IV STA (12:41)
--- NOTE | 2023-06-03 12:53 | Emergency Department Note ---
Impression & Plan Atrial fibrillation with rapid ventricular response, Elevated troponin I level, Weakness ED Provider Note NAME: ANJEL COLLINS AGE: 82 SEX: M : 1940 ARRIVES VIA: Walk-In INFORMANT: Patient, ED PROVIDER(S): Richardson Garcia DO CHIEF COMPLAINT: Palpitations HPI: The patient is an 82-year-old male who presented to the emergency [facility] for an evaluation of generalized weakness and palpitations. The patient states that he has been noticing symptoms over the course the last week. He was seen by his primary care physician. He had some laboratory studies drawn and was noted to have an abnormal thyroid function panel. He is still awaiting some laboratory studies. He also called his manager [employer]. The patient was noted to have some abnormal renal function. He does take NSAIDs normally. He was told to hold these. The patient denies having any black or tarry stools. He denies having any chest pain. He does complain of generalized weakness and some dyspnea on exertion. He was noted to have an irregular heartbeat today. He called his family doctor and was referred to the emergency department. ROS: See above HPI for pertinent positives & negatives. A total of 10 systems re viewed and were otherwise negative. PAST MEDICAL HISTORY: See Below PAST SURGICAL HISTORY: See Below FAMILY HISTORY: See Below SOCIAL HISTORY: See Below HOME MEDICATIONS: See Below ALLERGIES: See Below VITALS: See Below PHYSICAL EXAMINATION: GENERAL: Patient is awake alert in no acute distress patient is resting comfortably and showing no signs of anxiety EYES: The conjunctivae are clear. The pupils are round and reactive. EARS, NOSE, MOUTH AND THROAT: The nose is without any evidence of any deformity. Mucous membranes are moist. Tongue is midline. NECK: The neck is nontender and supple. RESPIRATORY: Normal respiratory effort is noted there is no evidence of wheezing rhonchi or rales CARDIOVASCULAR: Tachycardic and irregular heart sounds were noted to auscultation. There is no definite murmur GASTROINTESTINAL: The abdomen is soft. Abdomen is nontender. MUSCULOSKELETAL/EXTREMITIES: There is no evidence of gross deformity full range of motion is noted in the hips and shoulders. SKIN: Skin is warm and dry. There is no significant pedal edema. NEUROLOGIC: Patient is awake alert and oriented x3 MEDICAL DECISION MAKING: The patient is an 82-year-old male who presented to the emergency department for an evaluation of palpitations. The patient was found to be in rapid atrial fibrillation. He was treated initially with IV fluids as well as IV Cardizem bolus. His blood pressure did drop somewhat. For this reason he was treated further with IV magnesium and then switch to a Cardizem drip. I discussed the patient's laboratory and radiographic studies with him. It is unclear exactly when he went into this rhythm. He is relatively stable given his findings. [facility] They have agreed to evaluate the patient in the emergency department for further management and disposition. Triage Nursing notes reviewed. Prior medical records reviewed Vital Signs: reviewed and remarkable for tachycardia. Differential diagnosis: Premature contractions, electrolyte abnormality, cardiac dysrhythmia, thyroid dysfunction, pulmonary embolism, infection, gastrointestinal, as well as other pathologies. ER treatment provided: See below Diagnostics interpreted by me: ECG: EKG was obtained in the emergency department. My interpretation is atrial fibrillation with RVR at [address] depressions were noted. This was compared to a tracing from November 29, 2022. Atrial fibrillation has replaced sinus rhythm. Cardiac Monitoring: An order was placed for continuous cardiac monitoring. The monitor shows a rate of 151 bpm with atrial fibrillation and RVR. Laboratory studies: As stated above and show below. Imaging studies: See below. Radiographic imaging was reviewed by myself Consultation(s): I discussed this case with Candy who is [facility] ED COURSE: Procedures: none Critical Care: I have personally spent greater than 45 minutes of critical care time in the direct management of this patient. This includes bedside care, interpretation of diagnostic studies, and testing, discussion with consultants, patient, and family members, and other required patient management activities. This 45 minutes is in excess of all separately billable procedures. Past Med/Surg History Medical History Abnormal stress echo Abnormal stress test CAD (coronary artery disease) Microscopic hematuria Osteoporosis Rheumatoid arthritis Steroid-induced osteoporosis Surgical History H/O inguinal hernia repair History of appendectomy History of tonsillectomy and adenoidectomy Stented coronary artery KRISTINE to Proximal large D1 Family History Mother Colon cancer Congestive heart failure Stroke syndrome Father Diabetes Son Diabetes Daughter Breast cancer Grandfather (Paternal) Myocardial infarction Denies family history of Ovarian cancer Prostate cancer Social History Smoking Status: Former smoker Tobacco Type: Cigarettes Second Hand Exposure: No; Do You Dip or Chew Tobacco: No; Hx Alcohol Use: No Hx Substance Use: No Preferred Language: Algerian Communication Ability: Effective Visual Impairment: No Limitations Hearing Ability: Use of Hearing Aid Bridal Consultant Required: No Beliefs That Will Affect Care: None marital status: / Current Living Situation: Alone current occupational status: retired current occupation: Retired Feels Safe at Home: Yes Childhood Exposure to Second-Hand Smoke: No Dental Care, Regularly: Yes Physical Activity Frequency: Does not Exercise Seatbelt Use: always Sunscreen Use: No Assistive Devices: Glasses, Hearing Aid - Left and Hearing Aid - Right Allergies Allergies Allergy/AdvReac Type Severity Reaction Status Date / Time alendronate sodium Allergy Verified 05/30/23 14:35 cephalexin AdvReac Intermediate eye Verified 05/30/23 14:35 irritation and vision disturbances Home Meds Home Medications Medication Instructions Recorded Confirmed multivitamin (Daily Multi-Vitamin 1 tab PO DAILY 07/15/19 06/03/23 tablet) lifitegrast 5 % eye drops in a 1 drp ophthalmic (eye) BID 09/16/20 06/03/23 dropperette (Xiidra) aspirin 81 mg tablet,delayed 81 mg PO DAILY 10/24/20 06/03/23 release vit C 50 mg-E 15 unit-zinc cit 4.5 1 tab PO DAILY 11/20/21 06/03/23 mg-lutein 2.5 mg-zeaxan chew tablet (OcuvSolarPrint Eye Health) Vitamin D3 (calcium cit-phos) 1,000 units PO DAILY 06/03/23 06/03/23 naproxen 500 mg tablet 500 mg PO DAILY PRN arthritis 06/03/23 06/03/23 Previous Rx's Medication Instructions Recorded atorvastatin 40 mg tablet 40 mg PO DAILY #90 tabs 10/08/22 prednisone 5 mg tablet 5 mg PO DAILY #90 tabs 03/06/23 adalimumab 40 mg/0.4 mL 40 mg (0.4 mL) subcut Q14D #2 ea 04/10/23 subcutaneous pen kit (Humira(CF) Pen) tamsulosin 0.4 mg capsule 0.4 mg PO DAILY #90 caps 04/10/23 omeprazole 20 mg capsule,delayed 20 mg PO DAILY #90 caps 04/12/23 release losartan 100 mg tablet 100 mg PO DAILY #30 tabs 05/30/23 Results & Data (ED) Vital Signs Vital Signs - 24 hr 06/03/23 12:29 06/03/23 12:37 06/03/23 12:37 Temperature 36.5 C Temperature Source Temporal Artery Scan Pulse Rate 138 H Pulse Rate [Apical] 173 H Pulse Rhythm [Apical] Irregular Respiratory Rate 18 16 Respiratory Effort / Characteristics Non-Labored Non-Labored Respiratory Depth Normal Normal Blood Pressure 101/57 L Blood Pressure [Left Arm] 152/86 H Blood Pressure Mean 71 Blood Pressure Mean [Left Arm] 108 Blood Pressure Position Sitting Pulse Oximetry 95 95 95 Oxygen Delivery Method Room Air Room Air Room Air Sepsis Recent Fever Within 48 Hours No Sepsis New/Unexplained Change in Mental Status No Sepsis Action Taken by Nursing No Action Required 06/03/23 12:50 06/03/23 12:52 06/03/23 12:59 Temperature Temperature Source Pulse Rate 137 H Pulse Rate [Apical] 144 H 148 H Pulse Rhythm [Apical] Irregular Irregular Respiratory Rate 16 16 Respiratory Effort / Characteristics Non-Labored Non-Labored Respiratory Depth Normal Normal Blood Pressure Blood Pressure [Left Arm] 113/86 112/78 Blood Pressure Mean Blood Pressure Mean [Left Arm] 95 89 Blood Pressure Position Pulse Oximetry 93 93 Oxygen Delivery Method Room Air Room Air Sepsis Recent Fever Within 48 Hours Sepsis New/Unexplained Change in Mental Status Sepsis Action Taken by Nursing 06/03/23 13:15 06/03/23 13:30 06/03/23 13:45 Temperature Temperature Source Pulse Rate Pulse Rate [Apical] 136 H 137 H 138 H Pulse Rhythm [Apical] Irregular Regular Irregular Respiratory Rate 16 16 16 Respiratory Effort / Characteristics Non-Labored Non-Labored Non-Labored Respiratory Depth Normal Normal Normal Blood Pressure Blood Pressure [Left Arm] 107/83 100/80 101/83 Blood Pressure Mean Blood Pressure Mean [Left Arm] 91 86 89 Blood Pressure Position Pulse Oximetry 93 93 96 Oxygen Delivery Method Room Air Room Air Room Air Sepsis Recent Fever Within 48 Hours Sepsis New/Unexplained Change in Mental Status Sepsis Action Taken by Fpc Medications Current Medication List: was personally reviewed by me Laboratory Data Attestation: I reviewed the patient's lab results. 06/03/23 12:40 06/03/23 12:40 Lab Results 06/03/23 06/03/23 06/03/23 Range/Units 12:40 12:40 12:40 WBC 7.32 (4.8-10.8) K/ul RBC 3.78 L (4.70-6.10) M/uL Hgb 10.4 L (14.0-18.0) g/dl Hct 31.9 L (42.0-52.0) % MCV 84.4 (80.0-100.0) fL MCH 27.5 (25.0-34.0) pg MCHC 32.6 (32.0-36.0) g/dL RDW Std Deviation 48.6 H (36.4-46.3) fL RDW Coeff of Demond 15.9 H (11.5-14.5) % Plt Count 251 (130-400) K/uL MPV 9.2 L (9.4-12.4) fL Immature Gran % (Auto) 0.3 % Neut % (Auto) 70.3 % Lymph % (Auto) 20.9 % Medina % (Auto) 6.7 % Eos % (Auto) 1.1 % Baso % (Auto) 0.7 % Neut # (Auto) 5.15 (1.40-6.50) K/uL Lymph # (Auto) 1.53 (1.2-3.4) K/uL Medina # (Auto) 0.49 (0.11-0.59) K/uL Eos # (Auto) 0.08 (0-0.50) K/uL Baso # (Auto) 0.05 (0-0.2) K/uL Immature Gran # (Auto) 0.02 (0.01-0.20) K/uL PT 11.4 (9.0-12.0) Seconds INR 1.0 (0.9-1.1) APTT 24.3 (21.0-31.0) Seconds PTT Ratio 0.9 Sodium 141 (136-145) mmol/L Potassium 4.3 (3.5-5.1) mmol/L Chloride 107 (98-107) mmol/L Carbon Dioxide 27 (21-32) mmol/L Anion Gap 7 (3-11) BUN 21 (6-23) mg/dl Creatinine 1.35 (0.6-1.4) mg/dl Est Cr Clr Drug Dosing 41.7 ml/min Est GFR ( Amer) 57.1 ml/min Est GFR (Non-Af Amer) 49.2 ml/min BUN/Creatinine Ratio 15.6 (10-20) Glucose 110 H (70-99(Fasting)) mg/dl Calcium 9.3 (8.6-10.3) mg/dl Magnesium 2.1 (1.7-2.4) mg/dl Total Bilirubin 0.5 (0.2-1.0) mg/dl AST 24 (13-39) U/L ALT 19 (7-52) U/L Alkaline Phosphatase 87 (34-104) U/L Troponin I High Sens 30.2 H (0-20) pg/ml Total Protein 7.1 (6.0-8.3) gm/dl Albumin 3.8 (3.4-5.0) gm/dl Globulin 3.3 (2.5-4.0) gm/dl Albumin/Globulin Ratio 1.2 (0.9-2) TSH (0.300-4.500) uIu/ml SARS-CoV-2, RNA, NAAT (NEGATIVE) 06/03/23 06/03/23 Range/Units 12:40 13:03 WBC (4.8-10.8) K/ul RBC (4.70-6.10) M/uL Hgb (14.0-18.0) g/dl Hct (42.0-52.0) % MCV (80.0-100.0) fL MCH (25.0-34.0) pg MCHC (32.0-36.0) g/dL RDW Std Deviation (36.4-46.3) fL RDW Coeff of Demond (11.5-14.5) % Plt Count (130-400) K/uL MPV (9.4-12.4) fL Immature Gran % (Auto) % Neut % (Auto) % Lymph % (Auto) % Medina % (Auto) % Eos % (Auto) % Baso % (Auto) % Neut # (Auto) (1.40-6.50) K/uL Lymph # (Auto) (1.2-3.4) K/uL Medina # (Auto) (0.11-0.59) K/uL Eos # (Auto) (0-0.50) K/uL Baso # (Auto) (0-0.2) K/uL Immature Gran # (Auto) (0.01-0.20) K/uL PT (9.0-12.0) Seconds INR (0.9-1.1) APTT (21.0-31.0) Seconds PTT Ratio Sodium (136-145) mmol/L Potassium (3.5-5.1) mmol/L Chloride (98-107) mmol/L Carbon Dioxide (21-32) mmol/L Anion Gap (3-11) BUN (6-23) mg/dl Creatinine (0.6-1.4) mg/dl Est Cr Clr Drug Dosing ml/min Est GFR ( Amer) ml/min Est GFR (Non-Af Amer) ml/min BUN/Creatinine Ratio (10-20) Glucose (70-99(Fasting)) mg/dl Calcium (8.6-10.3) mg/dl Magnesium (1.7-2.4) mg/dl Total Bilirubin (0.2-1.0) mg/dl AST (13-39) U/L ALT (7-52) U/L Alkaline Phosphatase (34-104) U/L Troponin I High Sens (0-20) pg/ml Total Protein (6.0-8.3) gm/dl Albumin (3.4-5.0) gm/dl Globulin (2.5-4.0) gm/dl Albumin/Globulin Ratio (0.9-2) TSH 2.459 (0.300-4.500) uIu/ml SARS-CoV-2, RNA, NAAT NEGATIVE (NEGATIVE) Administered Medications Discontinued Medications Diltiazem HCl (Diltiazem Hcl 5 Mg/Ml 5 Ml Vial) 10 mg IV NOW STA Stop: 06/03/23 12:42 Last Admin: 06/03/23 12:45 Dose: 10 mg Documented By: DOROTHY Co-signed By: GATITO Sodium Chloride (Nss) 500 mls @ 999 mls/hr IV .Q31M STA Stop: 06/03/23 13:11 Last Infusion: 06/03/23 13:20 Dose: 0 mls/hr Documented By: Admin: 06/03/23 12:45 Dose: 999 mls/hr Documented By: DOROTHY Magnesium Sulfate/Dextrose (Magnesium Sulfate / D5w) 1 gm in 100 mls @ 100 mls/hr IV NOW STA Stop: 06/03/23 13:40 Last Infusion: 06/03/23 13:49 Dose: 0 mls/hr Documented By: Admin: 06/03/23 12:47 Dose: 100 mls/hr Documented By: DOROTHY Imaging Data Attestation: I personally reviewed and interpreted this imaging study as follows: My Impression: 1 view chest x-ray was obtained in the emergency department. My interpretation is cardiomegaly, final report below. Radiologist's Impression: Chest X-Ray 06/03/23 12:41 XR chest 1V portable HISTORY: Dysrhythmia COMPARISON: Chest 12/14/2022. FINDINGS: No pneumothorax. The cardiac silhouette is mildly enlarged. There is a large hiatus hernia again noted. Progressive interstitial/vascular thickening consistent with mild pulmonary edema. There are trace bilateral pleural effusions. IMPRESSION: Cardiomegaly with mild interstitial pulmonary edema and trace bilateral pleural effusions. ACT 112: Negative or not required by law. Electronically signed by: Luis Alberto Morrison M.D. 06/03/2023 1:36 PM Discharge Plan Visit Data Chief Complaint: Cardiac Assessment Stated Complaint: REF BY DOC, HYPOTENSION,IRREGULAR HEART RATE ED Provider: Richardson Garcia Discharge Problem: Atrial fibrillation with rapid ventricular response, Elevated troponin I level, Weakness Patient Disposition: Being Evaluated by Hospitalist Forms Stand Alone Forms: My [facility] Prescriptions Prescriptions: No Action atorvastatin 40 mg tablet 40 mg PO DAILY Qty: 90 3RF tamsulosin 0.4 mg capsule 0.4 mg PO DAILY Qty: 90 3RF Humira(CF) Pen 40 mg/0.4 mL pen injector kit 40 mg subcut Q14D Qty: 2 2RF omeprazole 20 mg capsule,delayed release(DR/EC) 20 mg PO DAILY Qty: 90 3RF multivitamin [Daily Multi-Vitamin] tablet 1 tab PO DAILY [employer] 50 mg-15 unit- 4.5 mg-2.5 mg tablet,chewable 1 tab PO DAILY losartan 100 mg tablet 100 mg PO DAILY Qty: 30 2RF Xiidra 5 % dropperette 1 drp ophthalmic (eye) BID Rx Instructions: administer approximately 12 hours apart aspirin 81 mg tablet,delayed release (DR/EC) 81 mg PO DAILY prednisone 5 mg tablet 5 mg PO DAILY Qty: 90 3RF Vitamin D3 (calcium cit-phos) 1,000 units PO DAILY naproxen 500 mg tablet 500 mg PO DAILY PRN (Reason: arthritis) Referrals Referrals: ProRichardson MD [Primary Care Provider] -
[2023-06-03 13:18] LABS: Basophils # (auto) 0.05 K/uL (0-0.2); Basophils % (auto) 0.7 %; Eosinophils # (auto) 0.08 K/uL (0-0.50); Eosinophils % (auto) 1.1 %; Hematocrit (blood only) 31.9 % (42.0-52.0); Hemoglobin 10.4 g/dl (14.0-18.0); Immature Granulocytes # (auto) 0.02 K/uL (0.01-0.20); Immature Granulocytes % (auto) 0.3 %; Lymphocytes # (auto) 1.53 K/uL (1.2-3.4); Lymphocytes % (auto) 20.9 %; Mean Corpuscular Hemoglobin 27.5 pg (25.0-34.0); Mean Corpuscular Hgb Conc 32.6 g/dL (32.0-36.0); Mean Corpuscular Volume 84.4 fL (80.0-100.0); Mean Platelet Volume 9.2 fL (9.4-12.4); Monocytes # (auto) 0.49 K/uL (0.11-0.59); Monocytes % (auto) 6.7 %; Neutrophils # (auto) 5.15 K/uL (1.40-6.50); Neutrophils % (auto) 70.3 %; Platelet Count 251 K/uL (130-400); RDW Coefficient of Variation 15.9 % (11.5-14.5); RDW Standard Deviation 48.6 fL (36.4-46.3); Red Blood Count 3.78 M/uL (4.70-6.10); White Blood Count 7.32 K/ul (4.8-10.8)
--- NOTE | 2023-06-03 13:23 | Electrocardiogram Report ---
Test Reason : Blood Pressure : / mmHG Vent. Rate : 174 BPM Atrial Rate : 000 BPM P-R Int : 000 ms QRS Dur : 094 ms QT Int : 286 ms P-R-T Axes : 000 000 -22 degrees QTc Int : 486 ms Atrial fibrillation with rapid ventricular response Cannot rule out Inferior infarct (cited on or before 29-NOV-2022) Nonspecific ST abnormality Abnormal ECG When compared with ECG of 29-NOV-2022 20:15, Significant changes have occurred Confirmed by Richardson Magaña ([id number]) on 06/03/2023 1:23:11 PM Referred By: Confirmed By:Richardson Magaña
[2023-06-03 13:33] LABS: Albumin Globulin Ratio 1.2 (0.9-2); Albumin Level 3.8 gm/dl (3.4-5.0); BUN Creatinine Ratio 15.6 (10-20); Bilirubin,Total 0.5 mg/dl (0.2-1.0); Calcium 9.3 mg/dl (8.6-10.3); Creatinine Clr Calc Pharmacy 41.7 ml/min; Est GFR (African American) 57.1 ml/min; Est GFR (Non-African American) 49.2 ml/min; Globulin 3.3 gm/dl (2.5-4.0); Magnesium 2.1 mg/dl (1.7-2.4); Potassium 4.3 mmol/L (3.5-5.1); Total Protein 7.1 gm/dl (6.0-8.3)
[2023-06-03 13:38] LABS: Troponin I High Sensitivity 30.2 pg/ml (0-20)
--- NOTE | 2023-06-03 13:38 | XRay Report ---
XR chest 1V portable HISTORY: Dysrhythmia COMPARISON: Chest 12/14/2022. FINDINGS: No pneumothorax. The cardiac silhouette is mildly enlarged. There is a large hiatus hernia again noted. Progressive interstitial/vascular thickening consistent with mild pulmonary edema. There are trace bilateral pleural effusions. IMPRESSION: Cardiomegaly with mild interstitial pulmonary edema and trace bilateral pleural effusions. ACT 112: Negative or not required by law. Electronically signed by: Luis Alberto Morrison M.D. 06/03/2023 1:36 PM
[2023-06-03 13:42] LABS: Partial Thromboplastin Ratio 0.9; Partial Thromboplastin Time 24.3 Seconds (21.0-31.0); Prothrombin Time 11.4 Seconds (9.0-12.0)
[2023-06-03] MEDS ORDERED: STAT IV Infusion **Titration per Protocol STA (14:16)
[2023-06-03] MEDS ORDERED: SODIUM CHLORIDE 0.9% 1000ML 500 ML IV ONE (14:16)
--- NOTE | 2023-06-03 14:30 | History & Physical Report ---
Date of Service June 03, 2023 Assessment & Plan (1) Atrial fibrillation with rapid ventricular response: Plan: new onset with rates to 170s -- sounds like has been going on since about 05/23 (2 weeks ago), worsening over this past weekend Admit to telemetry Cards consult Trend troponin but suspect demand ischemic from elevated HR/afib with RVR ECHO ordered Continue cardizem for now Eliquis 5mg BID (may need to adjust pending below) Ddimer added to blood already drawn (cramping to leg/swelling reported)-- check RLE Venous Doppler If negative, planning to add scheduled metoprolol 25mg Q6H with hold parameters Keep K~4, Mag ~2 Will not continue IVF, BP stable 135/85 most recently CXR w/ cardiomegaly/interstiail edema/bilateral effusions Can give dose Lasix once HRs better controlled as long as BPs allow, suspect degree of HF from rapid HR Monitor labs in AM (2) CHF (congestive heart failure): Plan: cxr w/ congestion however no hypoxia given IVF in ER, no further. Continue cardizem gtt for rapid rate cards consulted/echo as above. bnp added to labs monitor weight/i&o (3) Coronary artery disease: Plan: hx CAD w/ PCI to diagnoal branch 2020, follows with Dr Hyatt (4) Hypertension: Plan: Typically on Losartan 100mg, recently cut back from combo HCTZ-losartan BPs borderline on admission w/ elevated HR Holding losartan for now, Cr slightly elevated. Also instructed to hold NSAIDs by PCP/rheum last week for slight elevation in CR Cardizem for afib as above, metoprolol to be scheduled q6h once Doppler results (5) Hyperlipidemia: Plan: continue statin (6) Anemia: Plan: Appears around baseline Monitor for bleeding once starting AC (noting hx microscopic hematuria per recent Nephro notes) NSAIDs on hold, to avoid as able. Takes for his underlying RA and had been holding for about a week but took one this morning (7) Hypothyroidism: Plan: not on medications, most recent TSH wnl on check (8) Elevated troponin I level: Plan: suspect 2nd to demand from elevated HR trend, echo, cards consult, ekg w/ CP (9) Weakness: Plan: likely 2nd to afib w/ rvr monitor response to treatment PT/OT consults Rheumatoid Arthritis --> on prednisone 5mg daily (took this morning), naproxen, adalimumab - consider stress dose steroids, but will a void w/ afib w/ elevated rates at present. Na stable BPs improving Continue prednisone 5mg daily History of Present Illness Chief Complaint: sob/palpitations, new onset afib w/ rvr Primary Care Provider: Richardson Becerra MD 82yo male with PMHx significant for CAD, HTN, HLD, Hypothyroidism, Rheumatoid Arthritis, GERD, presented for generalized weakness, shortness of breath and palpitations/fluttering sensation worsening over this past weekend. Unclear actual duration. On admission, found to be in afib w/ RVR, new onset. EKG w/ rates to 170s, given dose IV cardizem. When asked about when symptoms initially started, patient notes two 's ago he went to the gym and was feeling ok but a little off and drank about 16oz of water and went inside to rest and he noted a normal pulse rate (checks on his watch). He noted the symptoms lasted about an hour of chest pressure to the center of his chest (prior cardiac symptoms were L sided chest pain, he reports this does not feel similar to prior events). 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 He notes then over the weekend he was doing normal activity and called Dr Becerra's office on Saturday and asked "are there any labs for me" as he was feeling quite off. He then saw primary care last week with low BP and decision to hold losartan/HCTZ combo and continue losartan by itself. He notes BPs were around 101 systolic in the office which was similar to his home electronic BP cuff. BP then over the weekend on home cuff not able to be obtained as "too much movement" reported by his machine. He notes his neighbor, Dr Diana who had retired years back, had called to check on him this morning to see how he was feeling and they reviewed his labs and reporting low energy, his BP was checked manually and was low but he is unsure what the actual reading was. He notes his doctor friend then told him his HR was in the 150s and irregular. He had been holding further naproxen at instruction of PCP/rheum for elevated kidney function. He notes he had some cramping in his right leg last week. He notes he's had some swelling (no calf tenderness at present) but he feels slightly more swollen than normal. noted normal PAD testing in past (per patient). Told to hold further NSAIDs, had been on prednisone daily but he did take a naproxen this morning to see if that helped but it did not. Had prior been on Synthroid but had been stable off such however recent TSH 5.3 last week but normal on current check. Not on synthyroid at present. Given 500cc bolus by ER provider, additional IVF ordered w/ Cardizem gtt. Decision to admit. Full code BP improved to 135/85 most recently and able to ambulate from bathroom w/o dizziness despite HRs still in 130-140s CXR w/ cardiomegaly with mild interstitial pulmonary edema and trace bilateral effusions. He notes he does get some gurgling sensation at night/something sensation in throat but that maybe dry cough. Does not have to sleep in recliner or anything like that, no known hx SOWMYA, and sleeps typically with one pillow at night. No chills/fever, no abdominal pain/nausea or vomiting at present. Questions/concerns addressed. Allergies Allergy/AdvReac Type Severity Reaction Status Date / Time alendronate sodium Allergy Verified 05/30/23 14:35 cephalexin AdvReac Intermediate eye Verified 05/30/23 14:35 irritation and vision disturbances Home Medications Medication Instructions Recorded Confirmed Type multivitamin (Daily Multi-Vitamin 1 tab PO DAILY 07/15/19 06/03/23 History tablet) lifitegrast 5 % eye drops in a 1 drp ophthalmic (eye) BID 09/16/20 06/03/23 History dropperette (Xiidra) aspirin 81 mg tablet,delayed 81 mg PO DAILY 10/24/20 06/03/23 History release vit C 50 mg-E 15 unit-zinc cit 4.5 1 tab PO DAILY 11/20/21 06/03/23 History mg-lutein 2.5 mg-zeaxan chew tablet (Zigabid [facility]) atorvastatin 40 mg tablet 40 mg PO DAILY #90 tabs 10/08/22 06/03/23 Rx prednisone 5 mg tablet 5 mg PO DAILY #90 tabs 03/06/23 06/03/23 Rx adalimumab 40 mg/0.4 mL 40 mg (0.4 mL) subcut Q14D #2 ea 04/10/23 06/03/23 Rx subcutaneous pen kit (Humira(CF) Pen) tamsulosin 0.4 mg capsule 0.4 mg PO DAILY #90 caps 04/10/23 06/03/23 Rx omeprazole 20 mg capsule,delayed 20 mg PO DAILY #90 caps 04/12/23 06/03/23 Rx release losartan 100 mg tablet 100 mg PO DAILY #30 tabs 05/30/23 06/03/23 Rx Vitamin D3 (calcium cit-phos) 1,000 units PO DAILY 06/03/23 06/03/23 History naproxen 500 mg tablet 500 mg PO DAILY PRN arthritis 06/03/23 06/03/23 History Past Med/Surg History Medical History Abnormal stress echo Abnormal stress test CAD (coronary artery disease) Microscopic hematuria Osteoporosis Rheumatoid arthritis Steroid-induced osteoporosis Surgical History H/O inguinal hernia repair History of appendectomy History of tonsillectomy and adenoidectomy Stented coronary artery KRISTINE to Proximal large D1 Family History Mother Colon cancer Congestive heart failure Stroke syndrome Father Diabetes Son Diabetes Daughter Breast cancer Grandfather (Paternal) Myocardial infarction Denies family history of Ovarian cancer Prostate cancer Social History Smoking Status: Former smoker Tobacco Type: Cigarettes Second Hand Exposure: No; Do You Dip or Chew Tobacco: No; Hx Alcohol Use: No Hx Substance Use: No Preferred Language: Afghan Communication Ability: Effective Visual Impairment: No Limitations Hearing Ability: Use of Hearing Aid Retail [employer] Required: No Beliefs That Will Affect Care: None marital status: / Current Living Situation: Alone current occupational status: retired current occupation: Retired Feels Safe at Home: Yes Safety Concerns: Feels Safe At This Time Childhood Exposure to Second-Hand Smoke: No Dental Care, Regularly: Yes Physical Activity Frequency: Does not Exercise Seatbelt Use: always Sunscreen Use: No Assistive Devices: Glasses Review of Systems Review of Systems: All systems reviewed & are unremarkable except as noted in HPI & below Physical Exam Physical Exam: General: WD/WN male sitting up in bed, just ambulated back from bathroom, NAD HEENT: head normocephalic, atraumatic, mmm, trachea midline, +JVD Resp: diminished in the bases, faint expiratory wheezing, no crackles/rales, 94% on RA CV: irregularly irregular, rates in 140s, +murmur, 1+ bilateral LE edema (RLE>LLE edema), calves nontender and pulses present GI: +BS, soft/nontender ; no hurtado MSK/Neuro: no focal deficit, generalized weakness, no slurred speech/facial droop Psych: alert and oriented x 3, cooperative with exam Skin: perfused, no obvious lesions/rashes Results & Data Results & Data Vital Signs (Past 12 Hours) Vital Signs Temp Pulse Pulse Resp BP BP Pulse Ox 06/03/23 13:45 138 H 16 101/83 96 06/03/23 13:30 137 H 16 100/80 93 06/03/23 13:15 136 H 16 107/83 93 06/03/23 12:59 148 H 16 112/78 93 06/03/23 12:52 137 H 06/03/23 12:50 144 H 16 113/86 93 06/03/23 12:37 173 H 16 152/86 H 95 06/03/23 12:37 95 06/03/23 12:29 36.5 C 138 H 18 101/57 L 95 O2 Del Method 06/03/23 13:45 Room Air 06/03/23 13:30 Room Air 06/03/23 13:15 Room Air 06/03/23 12:59 Room Air 06/03/23 12:52 06/03/23 12:50 Room Air 06/03/23 12:37 Room Air 06/03/23 12:37 Room Air 06/03/23 12:29 Room Air Laboratory Results 06/03/23 06/03/23 06/03/23 Range/Units 13:03 12:40 12:40 WBC (4.8-10.8) K/ul RBC (4.70-6.10) M/uL Hgb (14.0-18.0) g/dl Hct (42.0-52.0) % MCV (80.0-100.0) fL MCH (25.0-34.0) pg MCHC (32.0-36.0) g/dL RDW Std Deviation (36.4-46.3) fL RDW Coeff of Demond (11.5-14.5) % Plt Count (130-400) K/uL MPV (9.4-12.4) fL Immature Gran % (Auto) % Neut % (Auto) % Lymph % (Auto) % Ward % (Auto) % Eos % (Auto) % Baso % (Auto) % Neut # (Auto) (1.40-6.50) K/uL Lymph # (Auto) (1.2-3.4) K/uL Ward # (Auto) (0.11-0.59) K/uL Eos # (Auto) (0-0.50) K/uL Baso # (Auto) (0-0.2) K/uL Immature Gran # (Auto) (0.01-0.20) K/uL PT (9.0-12.0) Seconds INR (0.9-1.1) APTT (21.0-31.0) Seconds PTT Ratio Sodium 141 (136-145) mmol/L Potassium 4.3 (3.5-5.1) mmol/L Chloride 107 (98-107) mmol/L Carbon Dioxide 27 (21-32) mmol/L Anion Gap 7 (3-11) BUN 21 (6-23) mg/dl Creatinine 1.35 (0.6-1.4) mg/dl Est Cr Clr Drug Dosing 41.7 ml/min Est GFR ( Amer) 57.1 ml/min Est GFR (Non-Af Amer) 49.2 ml/min BUN/Creatinine Ratio 15.6 (10-20) Glucose 110 H (70-99(Fasting)) mg/dl Calcium 9.3 (8.6-10.3) mg/dl Magnesium 2.1 (1.7-2.4) mg/dl Total Bilirubin 0.5 (0.2-1.0) mg/dl AST 24 (13-39) U/L ALT 19 (7-52) U/L Alkaline Phosphatase 87 (34-104) U/L Troponin I High Sens 30.2 H (0-20) pg/ml Total Protein 7.1 (6.0-8.3) gm/dl Albumin 3.8 (3.4-5.0) gm/dl Globulin 3.3 (2.5-4.0) gm/dl Albumin/Globulin Ratio 1.2 (0.9-2) TSH 2.459 (0.300-4.500) uIu/ml SARS-CoV-2, RNA, NAAT NEGATIVE (NEGATIVE) 06/03/23 06/03/23 Range/Units 12:40 12:40 WBC 7.32 (4.8-10.8) K/ul RBC 3.78 L (4.70-6.10) M/uL Hgb 10.4 L (14.0-18.0) g/dl Hct 31.9 L (42.0-52.0) % MCV 84.4 (80.0-100.0) fL MCH 27.5 (25.0-34.0) pg MCHC 32.6 (32.0-36.0) g/dL RDW Std Deviation 48.6 H (36.4-46.3) fL RDW Coeff of Demond 15.9 H (11.5-14.5) % Plt Count 251 (130-400) K/uL MPV 9.2 L (9.4-12.4) fL Immature Gran % (Auto) 0.3 % Neut % (Auto) 70.3 % Lymph % (Auto) 20.9 % Ward % (Auto) 6.7 % Eos % (Auto) 1.1 % Baso % (Auto) 0.7 % Neut # (Auto) 5.15 (1.40-6.50) K/uL Lymph # (Auto) 1.53 (1.2-3.4) K/uL Ward # (Auto) 0.49 (0.11-0.59) K/uL Eos # (Auto) 0.08 (0-0.50) K/uL Baso # (Auto) 0.05 (0-0.2) K/uL Immature Gran # (Auto) 0.02 (0.01-0.20) K/uL PT 11.4 (9.0-12.0) Seconds INR 1.0 (0.9-1.1) APTT 24.3 (21.0-31.0) Seconds PTT Ratio 0.9 Sodium (136-145) mmol/L Potassium (3.5-5.1) mmol/L Chloride (98-107) mmol/L Carbon Dioxide (21-32) mmol/L Anion Gap (3-11) BUN (6-23) mg/dl Creatinine (0.6-1.4) mg/dl Est Cr Clr Drug Dosing ml/min Est GFR ( Amer) ml/min Est GFR (Non-Af Amer) ml/min BUN/Creatinine Ratio (10-20) Glucose (70-99(Fasting)) mg/dl Calcium (8.6-10.3) mg/dl Magnesium (1.7-2.4) mg/dl Total Bilirubin (0.2-1.0) mg/dl AST (13-39) U/L ALT (7-52) U/L Alkaline Phosphatase (34-104) U/L Troponin I High Sens (0-20) pg/ml Total Protein (6.0-8.3) gm/dl Albumin (3.4-5.0) gm/dl Globulin (2.5-4.0) gm/dl Albumin/Globulin Ratio (0.9-2) TSH (0.300-4.500) uIu/ml SARS-CoV-2, RNA, NAAT (NEGATIVE) Diagnostic Findings Chest X-Ray 06/03/23 12:41 XR chest 1V portable HISTORY: Dysrhythmia COMPARISON: Chest 12/14/2022. FINDINGS: No pneumothorax. The cardiac silhouette is mildly enlarged. There is a large hiatus hernia again noted. Progressive interstitial/vascular thickening consistent with mild pulmonary edema. There are trace bilateral pleural effusions. IMPRESSION: Cardiomegaly with mild interstitial pulmonary edema and trace bilateral pleural effusions. ACT 112: Negative or not required by law. Electronically signed by: Luis Alberto Morrison M.D. 06/03/2023 1:36 PM ECG Additional Comments: Atrial fibrillation with RVR, rate 174bpm, nonspecific ST abn Supervising Physician Co-Signing Physician Notes I personally saw and examined the patient. I verified all ceballos points and agree with Pat Kelly PA-C with the following exceptions and/or additions: 82 year old male presents to the ER with increased heart rate and intermittent chest pain, fatigue for the last 2 weeks. No history of a. fib or CHF. Noticed increased leg swelling and weight gain during this time. O/E A&Ox3, HS increased rate, irregular rhythm, Chest bibasl crackles, no wheezing, Abdo SNT, b/l leg 1+ pitting R > L edema with calf on right side > 2cm larger than left, no calf pain A/P New onset atrial fibrillation - Eliquis, metoprolol 25mg q6h with hold parameters changed to sBP < 90 or HR < 60, wean off diltiazem as metoprolol starts working. CHF with unknown EF - suspected mainly rate related, right R > L leg suspect due to b/l leg swelling with worse venous return on right due to prior injuries on this side. US venous doppler pending but low suspicion of PE/DVT, no need for CT for PE as long as US venous doppler negative. He has no chest pain or shortness of breath currently and BP maintaining despite diltiazem drip. Hold off lasix on admission, suspect as losartan is metabolized his BP will improve enough for Lasix tomorrow. PG Care Time/CCT Total # of Minutes Spent Total Time Spent with Patient: Total time spent is greater than 50% in coordination of care (as documented) at patient's floor/unit and/or counseling patient: Coding Level of Care Code 95584 INT INP/OBS CARE 3/75MIN Diagnoses Atrial fibrillation with rapid ventricular response I48.91 CHF (congestive heart failure) I50.9 Coronary artery disease I25.10 Hypertension I10 Hyperlipidemia E78.5 Anemia D64.9 Hypothyroidism E03.9 Elevated troponin I level R77.8 Weakness R53.1
[2023-06-03] MEDS: dilTIAZem HCL 125 MG in DEXTROSE 5% 100 ML IV SCH (14:44)
[2023-06-03 15:48] LABS: D Dimer 700 ug/L FEU (0-500)
[2023-06-03] MEDS ORDERED: ONDANSETRON INJ 2 MG/ML 2 ML VIAL IV PRN (15:49)
[2023-06-03] MEDS ORDERED: ACETAMINOPHEN 325 MG TAB PO PRN (15:49)
[2023-06-03] MEDS: METOPROLOL TARTRATE 25 MG TAB PO SCH (18:00)
[2023-06-03] MEDS: APIXABAN 5 MG TABLET PO SCH (21:04)
--- NOTE | 2023-06-03 21:28 | Ultrasound Report ---
Exam(s): US VENOUS RIGHT LOWER EXTREMITY EXAM: US Duplex Right Lower Extremity Veins CLINICAL HISTORY: Rule out dvt. TECHNIQUE: Real-time duplex ultrasound scan of the right lower extremity veins integrating B-mode two-dimensional vascular structure, Doppler spectral analysis, color flow Doppler imaging and compression. COMPARISON: No relevant prior studies available. FINDINGS: Deep veins: Unremarkable. No DVT in the visualized common femoral, femoral, proximal deep femoral or popliteal veins. The veins demonstrate normal color flow, are normally compressible, with normal phasic flow and/or augmentation response. The interrogated calf veins are patent. Superficial veins: Unremarkable. No thrombus in the saphenofemoral junction. Soft tissues: Subcutaneous edema noted in the popliteal region. No loculated fluid collection. IMPRESSION: No evidence for deep vein thrombosis involving the right lower extremity. Electronically signed by: Adrien York MD 06/03/23 21:28 PM
[2023-06-03] MEDS: TAMSULOSIN HCL 0.4 MG CAP PO SCH (22:07)
[2023-06-03] MEDS: ATORVASTATIN 40 MG TAB PO SCH (22:07)
[2023-06-04] MEDS: METOPROLOL TARTRATE 25 MG TAB PO SCH ×5 (00:12→23:30)
[2023-06-04] MEDS: dilTIAZem HCL 125 MG in DEXTROSE 5% 100 ML IV SCH (06:06)
[2023-06-04 06:51] LABS: Hematocrit (blood only) 28.3 % (42.0-52.0); Hemoglobin 9.2 g/dl (14.0-18.0); Mean Corpuscular Hemoglobin 27.7 pg (25.0-34.0); Mean Corpuscular Hgb Conc 32.5 g/dL (32.0-36.0); Mean Corpuscular Volume 85.2 fL (80.0-100.0); Mean Platelet Volume 9.3 fL (9.4-12.4); Platelet Count 235 K/uL (130-400); RDW Coefficient of Variation 15.9 % (11.5-14.5); RDW Standard Deviation 49.1 fL (36.4-46.3); Red Blood Count 3.32 M/uL (4.70-6.10)
[2023-06-04 07:12] LABS: BUN Creatinine Ratio 16.9 (10-20); Calcium 8.5 mg/dl (8.6-10.3); Creatinine Clr Calc Pharmacy 51.1 ml/min; Est GFR (African American) 67.1 ml/min; Est GFR (Non-African American) 57.9 ml/min; Potassium 3.9 mmol/L (3.5-5.1)
--- NOTE | 2023-06-04 07:59 | Hospitalist Progress Note ---
Date of Service June 04, 2023 Assessment & Plan (1) Atrial fibrillation with rapid ventricular response: Plan: new onset with rates to 170s -- sounds like has been going on since about 05/23 (2 weeks ago), worsening over this past weekend Cardizem gtt down to 5 at present Metoprolol 25mg PO q6H w/ parameters. Avoiding increasing at present given borderline BPs. Could consider stress dose steroid as well but wanting to avoid to prevent further elevation in HR at present Eliquis 5mg BID initiated and continued -- needs new rx at discharge ECHO w/o significant change Cards consulted --> discussed w/ Dr Magaña, given BP borderline, decision for digoxin 0.25mg IV x 1 and monitor HR over next 4 hours. If still elevated planning to repeat but if stable can convert to 0.25mg PO daily. Venous Doppler negative, discussed w/ superivisng provider on admission given elevated ddimer and do not suspect PE at present. Will need to continue to monitor BNP elevation to 500, suspect HF from rapid rates --> If BPs improving this afternoon w/ improvement in HR control will consider adding dose of IV lasix. Did get 1L IVF on admission for low BP, avoiding further IVF Monitor repeat labs, keep k~4, mag ~2 Continue to monitor on telemetry (2) CHF (congestive heart failure): Plan: 1L IVF given in ER, nothing further. CXR w/ pulm congestion/effusions on admission but remains stable on RA Reports some SOB w/ laying flat -- as above, checked BNP on admit, elevated to 500 Monitor I&O, weights Consideration for lasix if BPs improved w/ HR control as above Monitor on repeat (3) Coronary artery disease: Plan: hx CAD w/ PCI to diagonal branch 2020, follows with Dr Hyatt trop trended down/flattened on repeat -- suspect 2nd to rapid heart rates EKG w/ CP Cards consulted as above -- Dr Hyatt to be here tomorrow Remains on ASA/BB as above (4) Hypertension: Plan: Typically on Losartan 100mg, recently cut back from combo HCTZ-losartan Borderline BPs but was low at home Continue to hold losartan BPs stable/asymptomatic at 108/56 presently Cardizem gtt for rates, metoprolol PO q6h w/ hold parameters (5) Hyperlipidemia: Plan: continue statin (6) Anemia: Plan: Appears around baseline Monitor for bleeding once starting AC (noting hx microscopic hematuria per recent Nephro notes) NSAIDs on hold, to avoid as able. Takes for his underlying RA and had been holding for about a week but took one this morning Hgb to 9s but did get 1L IVF and suspect dilutional aspect. No bleeding reported but he does note prior microscopic hematuria --> would f/u [place]rology [place] for further eval (7) Hypothyroidism: Plan: not on medications, repeat TSH wnl (8) Elevated troponin I level: Plan: suspect 2nd to demand from elevated HR as above as no continued elevation Tx as outlined above (9) Weakness: Plan: likely 2nd to afib w/ rvr Feeling improving w/ improvement in HRs -- monitor PT/OT evals Rheumatoid Arthritis --> on prednisone 5mg daily (took this morning), naproxen, adalimumab - consider stress dose steroids, but will avoid w/ afib w/ elevated rates at present. Na stable BPs improving/stable Continue prednisone 5mg daily for now Plan continued inpatient stay, working on rate/rhythm control Dr Hyatt to be available tomorrow per Dr Magaña, amalia baca discussed w/ patient if HRs improved/CHF resolving Admission and Anticipated Discharge Date Admission Date: June 03, 2023 Supervising Physician Co-Signing Physician Notes PA Supervision Note: I did not personally see or examine the patient. I verified all ceballos points and agree with SJ Kelly with the following exceptions and/or additions: none, ultimate plan to transition to digoxin PO and dilt PO, Cards assisting with this management and patient's continuity Pick Up Attendant in-house tomorrow. Subjective eval around noon, eating lunch. feeling better. discussed shortness of breath but has some issues laying flat. On room air but discussed I spoke with Dr Magaña and recanthony for IV dig and monitor rates/repeat dosing if needed. If stable will convert to PO for tomorrow. On low dose cardizem IV gtt 5 at present - wean as able. Dr Hyatt to be back tomorrow and will hopefully see him. Physical Exam Physical Exam: General: WD/WN male sitting up in bed, NAD, walking to bathroom HEENT: head normocephalic, atraumatic, mmm, trachea midline Resp: diminished in the bases with associated crackles, no wheezing, 90% on RA CV: irregularly irregular (rates 90-100s), +systolic murmur, trace b/l pedal edema GI: +BS, soft/nontender : no hurtado MSK/Neuro: no focal deficit, no slurred speech, following commands Psych: AOx3, cooperative, pleasant with exam Results & Data Results & Data Vital Signs (Past 12 Hours) Vital Signs Temp Pulse Pulse Resp BP Pulse Ox O2 Del Method 06/04/23 06:05 98 H 96/58 L 06/04/23 03:27 36.6 C 91 H 20 96/61 L 93 Room Air 06/04/23 00:00 82 06/04/23 00:11 95 H 119/80 06/03/23 22:56 36.6 C 92 H 20 118/68 93 Room Air 06/03/23 20:32 79 93/55 L 06/03/23 20:04 93 H 91/48 L Laboratory Results 06/04/23 06/04/23 06/04/23 Range/Units 06:08 06:08 06:08 WBC 5.60 (4.8-10.8) K/ul RBC 3.32 L (4.70-6.10) M/uL Hgb 9.2 L (14.0-18.0) g/dl Hct 28.3 L (42.0-52.0) % MCV 85.2 (80.0-100.0) fL MCH 27.7 (25.0-34.0) pg MCHC 32.5 (32.0-36.0) g/dL RDW Std Deviation 49.1 H (36.4-46.3) fL RDW Coeff of Demond 15.9 H (11.5-14.5) % Plt Count 235 (130-400) K/uL MPV 9.3 L (9.4-12.4) fL Immature Gran % (Auto) % Neut % (Auto) % Lymph % (Auto) % [place] % (Auto) % Eos % (Auto) % Baso % (Auto) % Neut # (Auto) (1.40-6.50) K/uL Lymph # (Auto) (1.2-3.4) K/uL [place] # (Auto) (0.11-0.59) K/uL Eos # (Auto) (0-0.50) K/uL Baso # (Auto) (0-0.2) K/uL Immature Gran # (Auto) (0.01-0.20) K/uL PT (9.0-12.0) Seconds INR (0.9-1.1) APTT (21.0-31.0) Seconds PTT Ratio D-Dimer (0-500) ug/L FEU Sodium 140 (136-145) mmol/L Potassium 3.9 (3.5-5.1) mmol/L Chloride 109 H (98-107) mmol/L Carbon Dioxide 25 (21-32) mmol/L Anion Gap 6 (3-11) BUN 20 (6-23) mg/dl Creatinine 1.18 (0.6-1.4) mg/dl Est Cr Clr Drug Dosing 51.1 ml/min Est GFR ( Amer) 67.1 ml/min Est GFR (Non-Af Amer) 57.9 ml/min BUN/Creatinine Ratio 16.9 (10-20) Glucose 94 (70-99(Fasting)) mg/dl Calcium 8.5 L (8.6-10.3) mg/dl Magnesium 2.0 (1.7-2.4) mg/dl Total Bilirubin (0.2-1.0) mg/dl AST (13-39) U/L ALT (7-52) U/L Alkaline Phosphatase (34-104) U/L Troponin I High Sens 40.0 H (0-20) pg/ml B-Natriuretic Peptide (0-100) pg/ml Total Protein (6.0-8.3) gm/dl Albumin (3.4-5.0) gm/dl Globulin (2.5-4.0) gm/dl Albumin/Globulin Ratio (0.9-2) TSH (0.300-4.500) uIu/ml SARS-CoV-2, RNA, NAAT (NEGATIVE) 06/03/23 06/03/23 06/03/23 Range/Units 22:34 16:26 16:26 WBC (4.8-10.8) K/ul RBC (4.70-6.10) M/uL Hgb (14.0-18.0) g/dl Hct (42.0-52.0) % MCV (80.0-100.0) fL MCH (25.0-34.0) pg MCHC (32.0-36.0) g/dL RDW Std Deviation (36.4-46.3) fL RDW Coeff of Demond (11.5-14.5) % Plt Count (130-400) K/uL MPV (9.4-12.4) fL Immature Gran % (Auto) % Neut % (Auto) % Lymph % (Auto) % [place] % (Auto) % Eos % (Auto) % Baso % (Auto) % Neut # (Auto) (1.40-6.50) K/uL Lymph # (Auto) (1.2-3.4) K/uL [place] # (Auto) (0.11-0.59) K/uL Eos # (Auto) (0-0.50) K/uL Baso # (Auto) (0-0.2) K/uL Immature Gran # (Auto) (0.01-0.20) K/uL PT (9.0-12.0) Seconds INR (0.9-1.1) APTT (21.0-31.0) Seconds PTT Ratio D-Dimer (0-500) ug/L FEU Sodium (136-145) mmol/L Potassium (3.5-5.1) mmol/L Chloride (98-107) mmol/L Carbon Dioxide (21-32) mmol/L Anion Gap (3-11) BUN (6-23) mg/dl Creatinine (0.6-1.4) mg/dl Est Cr Clr Drug Dosing ml/min Est GFR ( Amer) ml/min Est GFR (Non-Af Amer) ml/min BUN/Creatinine Ratio (10-20) Glucose (70-99(Fasting)) mg/dl Calcium (8.6-10.3) mg/dl Magnesium (1.7-2.4) mg/dl Total Bilirubin (0.2-1.0) mg/dl AST (13-39) U/L ALT (7-52) U/L Alkaline Phosphatase (34-104) U/L Troponin I High Sens 40.6 H D 30.1 H (0-20) pg/ml B-Natriuretic Peptide 500 H (0-100) pg/ml Total Protein (6.0-8.3) gm/dl Albumin (3.4-5.0) gm/dl Globulin (2.5-4.0) gm/dl Albumin/Globulin Ratio (0.9-2) TSH (0.300-4.500) uIu/ml SARS-CoV-2, RNA, NAAT (NEGATIVE) 06/03/23 06/03/23 06/03/23 Range/Units 13:03 12:40 12:40 WBC (4.8-10.8) K/ul RBC (4.70-6.10) M/uL Hgb (14.0-18.0) g/dl Hct (42.0-52.0) % MCV (80.0-100.0) fL MCH (25.0-34.0) pg MCHC (32.0-36.0) g/dL RDW Std Deviation (36.4-46.3) fL RDW Coeff of Demond (11.5-14.5) % Plt Count (130-400) K/uL MPV (9.4-12.4) fL Immature Gran % (Auto) % Neut % (Auto) % Lymph % (Auto) % [place] % (Auto) % Eos % (Auto) % Baso % (Auto) % Neut # (Auto) (1.40-6.50) K/uL Lymph # (Auto) (1.2-3.4) K/uL [place] # (Auto) (0.11-0.59) K/uL Eos # (Auto) (0-0.50) K/uL Baso # (Auto) (0-0.2) K/uL Immature Gran # (Auto) (0.01-0.20) K/uL PT (9.0-12.0) Seconds INR (0.9-1.1) APTT (21.0-31.0) Seconds PTT Ratio D-Dimer 700 H* (0-500) ug/L FEU Sodium (136-145) mmol/L Potassium (3.5-5.1) mmol/L Chloride (98-107) mmol/L Carbon Dioxide (21-32) mmol/L Anion Gap (3-11) BUN (6-23) mg/dl Creatinine (0.6-1.4) mg/dl Est Cr Clr Drug Dosing ml/min Est GFR ( Amer) ml/min Est GFR (Non-Af Amer) ml/min BUN/Creatinine Ratio (10-20) Glucose (70-99(Fasting)) mg/dl Calcium (8.6-10.3) mg/dl Magnesium (1.7-2.4) mg/dl Total Bilirubin (0.2-1.0) mg/dl AST (13-39) U/L ALT (7-52) U/L Alkaline Phosphatase (34-104) U/L Troponin I High Sens (0-20) pg/ml B-Natriuretic Peptide (0-100) pg/ml Total Protein (6.0-8.3) gm/dl Albumin (3.4-5.0) gm/dl Globulin (2.5-4.0) gm/dl Albumin/Globulin Ratio (0.9-2) TSH 2.459 (0.300-4.500) uIu/ml SARS-CoV-2, RNA, NAAT NEGATIVE (NEGATIVE) 06/03/23 06/03/23 06/03/23 Range/Units 12:40 12:40 12:40 WBC 7.32 (4.8-10.8) K/ul RBC 3.78 L (4.70-6.10) M/uL Hgb 10.4 L (14.0-18.0) g/dl Hct 31.9 L (42.0-52.0) % MCV 84.4 (80.0-100.0) fL MCH 27.5 (25.0-34.0) pg MCHC 32.6 (32.0-36.0) g/dL RDW Std Deviation 48.6 H (36.4-46.3) fL RDW Coeff of Demond 15.9 H (11.5-14.5) % Plt Count 251 (130-400) K/uL MPV 9.2 L (9.4-12.4) fL Immature Gran % (Auto) 0.3 % Neut % (Auto) 70.3 % Lymph % (Auto) 20.9 % [place] % (Auto) 6.7 % Eos % (Auto) 1.1 % Baso % (Auto) 0.7 % Neut # (Auto) 5.15 (1.40-6.50) K/uL Lymph # (Auto) 1.53 (1.2-3.4) K/uL [place] # (Auto) 0.49 (0.11-0.59) K/uL Eos # (Auto) 0.08 (0-0.50) K/uL Baso # (Auto) 0.05 (0-0.2) K/uL Immature Gran # (Auto) 0.02 (0.01-0.20) K/uL PT 11.4 (9.0-12.0) Seconds INR 1.0 (0.9-1.1) APTT 24.3 (21.0-31.0) Seconds PTT Ratio 0.9 D-Dimer (0-500) ug/L FEU Sodium 141 (136-145) mmol/L Potassium 4.3 (3.5-5.1) mmol/L Chloride 107 (98-107) mmol/L Carbon Dioxide 27 (21-32) mmol/L Anion Gap 7 (3-11) BUN 21 (6-23) mg/dl Creatinine 1.35 (0.6-1.4) mg/dl Est Cr Clr Drug Dosing 41.7 ml/min Est GFR ( Amer) 57.1 ml/min Est GFR (Non-Af Amer) 49.2 ml/min BUN/Creatinine Ratio 15.6 (10-20) Glucose 110 H (70-99(Fasting)) mg/dl Calcium 9.3 (8.6-10.3) mg/dl Magnesium 2.1 (1.7-2.4) mg/dl Total Bilirubin 0.5 (0.2-1.0) mg/dl AST 24 (13-39) U/L ALT 19 (7-52) U/L Alkaline Phosphatase 87 (34-104) U/L Troponin I High Sens 30.2 H (0-20) pg/ml B-Natriuretic Peptide (0-100) pg/ml Total Protein 7.1 (6.0-8.3) gm/dl Albumin 3.8 (3.4-5.0) gm/dl Globulin 3.3 (2.5-4.0) gm/dl Albumin/Globulin Ratio 1.2 (0.9-2) TSH (0.300-4.500) uIu/ml SARS-CoV-2, RNA, NAAT (NEGATIVE) Diagnostic Findings Chest X-Ray 06/03/23 12:41 XR chest 1V portable HISTORY: Dysrhythmia COMPARISON: Chest 12/14/2022. FINDINGS: No pneumothorax. The cardiac silhouette is mildly enlarged. There is a large hiatus hernia again noted. Progressive interstitial/vascular thickening consistent with mild pulmonary edema. There are trace bilateral pleural effusions. IMPRESSION: Cardiomegaly with mild interstitial pulmonary edema and trace bilateral pleural effusions. ACT 112: Negative or not required by law. Electronically signed by: Luis Alberto Morrison M.D. 06/03/2023 1:36 PM Venous Doppler Study 06/03/23 15:49 Exam(s): US VENOUS RIGHT LOWER EXTREMITY EXAM: US Duplex Right Lower Extremity Veins CLINICAL HISTORY: Rule out dvt. TECHNIQUE: Real-time duplex ultrasound scan of the right lower extremity veins integrating B-mode two-dimensional vascular structure, Doppler spectral analysis, color flow Doppler imaging and compression. COMPARISON: No relevant prior studies available. FINDINGS: Deep veins: Unremarkable. No DVT in the visualized common femoral, femoral, proximal deep femoral or popliteal veins. The veins demonstrate normal color flow, are normally compressible, with normal phasic flow and/or augmentation response. The interrogated calf veins are patent. Superficial veins: Unremarkable. No thrombus in the saphenofemoral junction. Soft tissues: Subcutaneous edema noted in the popliteal region. No loculated fluid collection. IMPRESSION: No evidence for deep vein thrombosis involving the right lower extremity. Electronically signed by: Adrien York MD 06/03/23 21:28 PM PG Care Time/CCT Total # of Minutes Spent Total Time Spent with Patient: Total time spent is greater than 50% in coordination of care (as documented) at patient's floor/unit and/or counseling patient: Coding Level of Care Code 22578 SUB INP/OBS CARE 3/50MIN Diagnoses Atrial fibrillation with rapid ventricular response I48.91 CHF (congestive heart failure) I50.9 Coronary artery disease I25.10 Hypertension I10 Hyperlipidemia E78.5 Anemia D64.9 Hypothyroidism E03.9 Elevated troponin I level R77.8 Weakness R53.1
[2023-06-04] MEDS: APIXABAN 5 MG TABLET PO SCH ×2 (08:26→20:16)
[2023-06-04] MEDS: PANTOprazole 40 MG TAB PO SCH (08:27)
[2023-06-04] MEDS: ASPIRIN 81 MG ECTAB PO SCH (08:27)
[2023-06-04] MEDS: CALCIUM 600MG + VIT D 400 IU TAB PO SCH (08:27)
[2023-06-04] MEDS: predniSONE 5 MG TAB PO SCH (08:28)
[2023-06-04] MEDS ORDERED: ATORVASTATIN 40 MG TAB PO SCH ×2 (09:00→21:00)
[2023-06-04] MEDS ORDERED: TAMSULOSIN HCL 0.4 MG CAP PO SCH ×2 (09:00→21:00)
[2023-06-04] MEDS ORDERED: ARTIFICIAL TEARS OP PRN (11:00)
[2023-06-04] MEDS ORDERED: DIGOXIN 250 MCG in SYRINGE 9 ML IV STA (11:49)
--- NOTE | 2023-06-04 11:56 | XCELERA ---
[id number] [id number]
--- NOTE | 2023-06-04 12:25 | Cardiology Consultation ---
Date of Consultation June 04, 2023 Assessment & Plan (1) Atrial fibrillation with rapid ventricular response: -onset likely 2 weeks ago. -improved ventricular response with metoprolol tartrate and diltiazem. -blood pressure limits further titration of those medications. -consider addition of digoxin. -agree with Eliquis 5 mg b.i.d.. (2) Elevated troponin I level: -minor elevation likely a supply demand mismatch. (3) Acute diastolic CHF (congestive heart failure): -would add an intravenous diuretic. (4) Coronary artery disease: -s/p D1 KRISTINE, December 2020. 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 -continue medical management. (5) Hypertension: -adequate control on current regimen. (6) Hyperlipidemia: -continue atorvastatin. (7) Aortic regurgitation: -mild in degree on current echocardiogram. History of Present Illness Reason for Consultation: Mr. Velarde is an 82-year-old male admitted yesterday with atrial fibrillation and a rapid ventricular response. This consultation was ordered to assistance cardiac management. Of note, patient typically follows with Dr. Hyatt in the outpatient setting. The patient was in his usual state of health until approximately 2 weeks ago when he began to note intermittent palpitations, shortness of breath, weakness, and just feeling off. He also noted some exercise intolerance when working out at the local gymnasium. Approximately 3 or 4 days prior to presentation, patient noted increase in his palpitations and noted his heart rate to be irregular on his Apple watch. His shortness of breath also progressed over that time frame. He contacted his PCPs office who suggested he proceed to the emergency room for further evaluation. On arrival here, patient was noted to be in atrial fibrillation with a rapid ventricular response. He was placed on intravenous diltiazem and his heart rate improved. The patient has never known of atrial fibrillation previously. He does carry a history of coronary artery disease having underwent, on a KRISTINE placement in the 1st diagonal branch back in December 2020. He was also found to have a chronic total occlusion of the mid LAD, and a 70% left PDA stenosis. His coronary artery disease has been quiescent on medical management since that. Currently, patient is resting comfortably in the bedside chair without complaints. Past medical and surgical history 1. Coronary artery disease-see above 2. D1 KRISTINE-December 2020 3. Hypertension 4. Hypercholesterolemia 5. Mild aortic insufficiency 6. Chronic anemia 7. Hypothyroidism 8. Rheumatoid arthritis 9. GERD 10. BPH 11. Inguinal hernia repair 12. Appendectomy 13. Tonsillectomy Social history , lives alone No tobacco or alcohol Family history Noncontributory Review of systems A 10 point review systems was undertaken and negative except that described above. Attending Physician: Sarah Wolfe DO Allergies Allergy/AdvReac Type Severity Reaction Status Date / Time alendronate sodium Allergy Verified 05/30/23 14:35 cephalexin AdvReac Intermediate eye Verified 05/30/23 14:35 irritation and vision disturbances Home Medications Medication Instructions Recorded Confirmed Type multivitamin (Daily Multi-Vitamin 1 tab PO DAILY 07/15/19 06/03/23 History tablet) lifitegrast 5 % eye drops in a 1 drp ophthalmic (eye) BID 09/16/20 06/03/23 History dropperette (Xiidra) aspirin 81 mg tablet,delayed 81 mg PO DAILY 10/24/20 06/03/23 History release vit C 50 mg-E 15 unit-zinc cit 4.5 1 tab PO DAILY 11/20/21 06/03/23 History mg-lutein 2.5 mg-zeaxan chew tablet ([employer] [facility]) atorvastatin 40 mg tablet 40 mg PO DAILY #90 tabs 10/08/22 06/03/23 Rx prednisone 5 mg tablet 5 mg PO DAILY #90 tabs 03/06/23 06/03/23 Rx adalimumab 40 mg/0.4 mL 40 mg (0.4 mL) subcut Q14D #2 ea 04/10/23 06/03/23 Rx subcutaneous pen kit (Humira(CF) Pen) tamsulosin 0.4 mg capsule 0.4 mg PO DAILY #90 caps 04/10/23 06/03/23 Rx omeprazole 20 mg capsule,delayed 20 mg PO DAILY #90 caps 04/12/23 06/03/23 Rx release losartan 100 mg tablet 100 mg PO DAILY #30 tabs 05/30/23 06/03/23 Rx Vitamin D3 (calcium cit-phos) 1,000 units PO DAILY 06/03/23 06/03/23 History naproxen 500 mg tablet 500 mg PO DAILY PRN arthritis 06/03/23 06/03/23 History Patient History Medical History Abnormal stress echo Abnormal stress test CAD (coronary artery disease) Microscopic hematuria Osteoporosis Rheumatoid arthritis Steroid-induced osteoporosis Surgical History H/O inguinal hernia repair History of appendectomy History of tonsillectomy and adenoidectomy Stented coronary artery KRISTINE to Proximal large D1 Family History Mother Colon cancer Congestive heart failure Stroke syndrome Father Diabetes Son Diabetes Daughter Breast cancer Grandfather (Paternal) Myocardial infarction Denies family history of Ovarian cancer Prostate cancer Social History Smoking Status: Former smoker Tobacco Type: Cigarettes Second Hand Exposure: No; Do You Dip or Chew Tobacco: No; Hx Alcohol Use: No Hx Substance Use: No Preferred Language: Belarusian Communication Ability: Effective Visual Impairment: No Limitations Hearing Ability: Use of Hearing Aid Language Therapist Required: No Beliefs That Will Affect Care: None marital status: / Current Living Situation: Alone current occupational status: retired current occupation: Retired Feels Safe at Home: Yes Safety Concerns: Feels Safe At This Time Childhood Exposure to Second-Hand Smoke: No Dental Care, Regularly: Yes Physical Activity Frequency: Does not Exercise Seatbelt Use: always Sunscreen Use: No Assistive Devices: Glasses Physical Exam Physical Exam: In general is well-developed well-nourished white male in no acute distress. HEENT exam is negative. Neck is supple with full carotid upstrokes. No carotid bruits. Jugular venous pressure is flat at 90. There is no thyromegaly. Cardiovascular exam reveals irregular irregular rhythm with distant heart sounds. No obvious murmurs. Lungs are clear without rales, rhonchi, wheezes. Abdomen is soft without bruits. Extremities reveal intact radial artery pulses bilaterally. Trace pretibial edema is noted. Results & Data Vital Signs (Past 12 Hours) Vital Signs Temp Pulse Pulse Resp BP Pulse Ox O2 Del Method 06/04/23 12:00 36.7 C 107 H 18 108/56 L 96 Room Air 06/04/23 11:44 90 06/04/23 10:00 104 H 94/62 L 90 Room Air 06/04/23 09:42 91 H 06/04/23 08:00 36.4 C L 99 H 16 96/55 L 90 Room Air 06/04/23 06:05 98 H 96/58 L 06/04/23 03:27 36.6 C 91 H 20 96/61 L 93 Room Air 06/04/23 00:11 95 H 119/80 Laboratory Results CBC notes hemoglobin 9.2, crit 28.3, white count 5.6, a platelet count of [id number]. Electrolytes note a sodium of 140, potassium 3.9, chloride 109, bicarb 25, BUN 20, creatinine 1.18, and glucose of 94. Initial high sensitivity troponin was 30.2 with follow-up values of 30.1, 40.6, and 40. BNP is elevated 500. TSH is normal at 2.46. Diagnostic Findings An echocardiogram reveals normal sinus rhythm ejection fraction of 60-65%. There were no wall motion abnormalities. There was mild LVH. No significant valvular pathology. Initial EKG noted atrial fibrillation with a rapid ventricular response of 170 beats per minute. There is low voltage throughout and an old inferior [place] pattern identified. There is a nonspecific ST abnormality. Chest x-ray notes cardiomegaly and interstitial edema. PG Care Time/CCT Total # of Minutes Spent Total Time Spent with Patient: Total time spent is greater than 50% in coordination of care (as documented) at patient's floor/unit and/or counseling patient: Coding Level of Care Code 67777 INT INP/OBS CARE 3/75MIN Diagnoses Atrial fibrillation with rapid ventricular response I48.91 Elevated troponin I level R77.8 Acute diastolic CHF (congestive heart failure) I50.31 Coronary artery disease I25.10 Hypertension I10 Hyperlipidemia E78.5 Aortic regurgitation I35.1
--- NOTE | 2023-06-04 14:49 | XRay Report ---
XR chest 1V portable CLINICAL HISTORY: f/u pulmonary congestion COMPARISON STUDY: Chest radiograph June 03, 2023. FINDINGS: Pulmonary edema is again noted. Small bilateral pleural effusions have slightly increased. Cardiomediastinal silhouette is stable. A hiatal hernia is noted. No definite consolidation to sugges t pneumonia. IMPRESSION: Persistent interstitial pulmonary edema with slight increase in small bilateral pleural effusions. ACT 112: Negative or not required by law. Electronically signed by: Teddy Estrada M.D. 06/04/2023 2:47 PM
--- NOTE | 2023-06-04 15:21 | Electrocardiogram Report ---
Test Reason : Blood Pressure : / mmHG Vent. Rate : 101 BPM Atrial Rate : 092 BPM P-R Int : 000 ms QRS Dur : 096 ms QT Int : 380 ms P-R-T Axes : 000 028 045 degrees QTc Int : 492 ms Atrial fibrillation with rapid ventricular response Low voltage QRS Cannot rule out Inferior infarct (cited on or before 29-NOV-2022) Abnormal ECG When compared with ECG of 03-JUN-2023 12:37, Vent. rate has decreased BY 73 BPM Nonspecific T wave abnormality no longer evident in Inferior leads Confirmed by Richardson Magaña ([id number]) on 06/04/2023 3:20:45 PM Referred By: Richardson Becerra Confirmed By:Richardson Magaña
[2023-06-04] MEDS: TAMSULOSIN HCL 0.4 MG CAP PO SCH (20:15)
[2023-06-04] MEDS: ATORVASTATIN 40 MG TAB PO SCH (20:16)
[2023-06-05] MEDS: METOPROLOL TARTRATE 25 MG TAB PO SCH ×3 (06:05→17:11)
[2023-06-05 06:28] LABS: Hematocrit (blood only) 27.2 % (42.0-52.0); Mean Corpuscular Hemoglobin 27.4 pg (25.0-34.0); Mean Corpuscular Hgb Conc 33.1 g/dL (32.0-36.0); Mean Corpuscular Volume 82.7 fL (80.0-100.0); Platelet Count 218 K/uL (130-400); RDW Coefficient of Variation 15.5 % (11.5-14.5); RDW Standard Deviation 47.4 fL (36.4-46.3); Red Blood Count 3.29 M/uL (4.70-6.10)
[2023-06-05 07:07] LABS: BUN Creatinine Ratio 17.3 (10-20); Calcium 8.6 mg/dl (8.6-10.3); Creatinine Clr Calc Pharmacy 47.4 ml/min; Est GFR (African American) 61.4 ml/min; Magnesium 1.9 mg/dl (1.7-2.4); Potassium 3.8 mmol/L (3.5-5.1)
[2023-06-05] MEDS: APIXABAN 5 MG TABLET PO SCH ×2 (08:31→20:34)
[2023-06-05] MEDS: predniSONE 5 MG TAB PO SCH (08:31)
[2023-06-05] MEDS: ASPIRIN 81 MG ECTAB PO SCH (08:31)
[2023-06-05] MEDS: PANTOprazole 40 MG TAB PO SCH (08:32)
[2023-06-05] MEDS: CALCIUM 600MG + VIT D 400 IU TAB PO SCH (08:32)
[2023-06-05] MEDS: dilTIAZem HCL 125 MG in DEXTROSE 5% 100 ML IV SCH (08:35)
[2023-06-05] MEDS ORDERED: POTASSIUM CHLORIDE CRTAB 20 MEQ TABCR PO STA (08:57)
--- NOTE | 2023-06-05 08:59 | XRay Report ---
XR chest 1V portable CLINICAL HISTORY: f/u congestion/pulmonary edema COMPARISON STUDY: Chest radiograph June 04, 2023. FINDINGS: There is no pneumothorax. There are trace bilateral pleural effusions. Pulmonary edema has slightly progressed. Bibasilar opacities have increased. Cardiomegaly is again noted. Mediastinal con tours are stable. IMPRESSION: 1. Progression of pulmonary edema. 2. Trace bilateral pleural effusions. 3. Increase in bibasilar opacities. ACT 112: Negative or not required by law. Electronically signed by: Teddy Estrada M.D. 06/05/2023 8:58 AM
[2023-06-05] MEDS: MAGNESIUM SULFATE / D5W 1 GM/100 ML BAG IV SCH ×2 (09:39→11:30)
--- NOTE | 2023-06-05 11:36 | Hospitalist Progress Note ---
Date of Service June 05, 2023 Assessment & Plan (1) Atrial fibrillation with rapid ventricular response: Plan: New onset afib - CHADSVASC2- 4- currently on stroke prevention with Apixaban 5mg PO BID- tolerating without brusing or bleeding noted - ECHO with EF preseverd at 55-60% with mild LVH- No RWMA noted - Currently being limited for increasing BB with blood pressure- will wean off Diltiazem today and follow his BP response - IF BP remains >110 will diurese as well as place on PRN IV Metoprolol for uncontrolled rates. - Currently rate controlled with peak HR 117 when getting up to restroom. Mainly 80-90s AFIB - WIll also hold his flomax with his lower blood pressures as well- restart when able - Maintain Mag >2.0 and K>4.0 - STOP BANG - 3 could consider SOWMYA screening as outpatient to decrease overall CV mortality - Appreciate Cardiology Consultation Dispo- continue PCU for monitoring of rythm and possibility for IV push dose BB (2) CHF (congestive heart failure): Plan: Patient with concentric LVH with preserved EF - This is likely created pulmonary edema in the setting of afib - Diurese today as able- Lasix 20mg IV given - Continue with BB - ARB on hold currently with hypotension (3) Coronary artery disease: Plan: History of CAD with PCI in 2020 - HScTNI elevation on admission likely type II demand from elevated HR - NO ischemic ECG changes - Continue asa, BB, statin (4) Hypertension: Plan: Chronic Cardizem gtt for rates, metoprolol PO q6h w/ hold parameters (5) Rheumatoid arthritis: Plan: Continue Prednisone 5mg daily - could consider sending random vs. am cortisol if hypotension continues - may need stress dose follow. (6) Hyperlipidemia: Plan: Chronic - continue statin (7) Anemia: Plan: Appears around baseline Monitor for bleeding once starting AC (noting hx microscopic hematuria per recent Nephro notes) - slight downtrend today with noting fluid volume status + - diurese as above if able - trend HGB/HCT in morning - BUN not elevated and no reports of bleeding per patient/nursing (8) Hypothyroidism: Plan: not on medications, repeat TSH wnl (9) Elevated troponin I level: Plan: Resolved- likely tytpe II demand no acute ECG changes (10) Weakness: Plan: Resolving with rate control Admission and Anticipated Discharge Date Admission Date: June 03, 2023 Supervising Physician Co-Signing Physician Notes SHIRLEY Supervision Note: I did not personally see or examine the patient. I verified all ceballos points and agree with Martin WATSON with the following exceptions and/or additions: Cardizem on active hold. Metoprolol 25mg PO q6h, digoxin 0.25mg PO daily for AFib, appreciate Cardiology consult. Subjective Patient is HD #2 for admission with NOAF with rapid ventricular response. Patient is currently being treated with IV Diltiazem at 5mg/hr, oral scheduled Metoprolol Tartate 25mg PO q6 hours, and Oral Digoxin 0.25mg daily. His HR have been 80-110's over the past 24 hours. His BP remains marginal with systolic 96- 106. He reports no dizziness, chest pain/palpitations, or dyspnea. He has some increase in pulmonary edema- consider ability to diurese. For today will discontinue his Diltiazem drip. If needed for rate control will attempt IV Metoprolol as BP allows as well as possibly increasing his oral Metoprolol Tartrate as Blood pressures allow. Replete Magnesium and Potassium. CODE: FULL Physical Exam Physical Exam: PHYSICAL EXAM: General: awake, alert, no apparent distress Head: Normocephalic, atraumatic ENT: PERRL, EOMI, no pharyngeal exudate, mucous membranes moist Neuro: AAO x 3, speech clear and appropriate, strength intact bilaterally 5/5, sensation intact and equal all extremities and dermatomes, no pronator drift Chest: equal rise and fall of the chest, no accessory muscle use, scattered crackles in bases Cardiac: irregular rate and rhythm, telemetry reviewed- afib rate controlled, skin warm dry, cap refill <3 seconds, peripheral pusles +2 no JVD, no murmur, GI: NABS x 4 quadrants, soft, nontender to palpation, no rebound, guarding or tenderness : Spontaneously voiding, no pain, no CVA tenderness, Psych: Normal mood and affect Results & Data Results & Data Vital Signs (Past 12 Hours) Vital Signs Temp Pulse Resp BP Pulse Ox O2 Del Method 06/05/23 09:00 Room Air 06/05/23 08:07 37.1 C 86 16 102/68 90 Room Air 06/05/23 06:08 90 107/70 07/19/23 03:13 36.9 C 102 H 16 96/62 L 93 Room Air Laboratory Results Laboratory Results - last 24 hr 06/05/23 06/05/23 06:09 06:09 WBC 6.70 RBC 3.29 L Hgb 9.0 L Hct 27.2 L MCV 82.7 MCH 27.4 MCHC 33.1 RDW Std Deviation 47.4 H RDW Coeff of Demond 15.5 H Plt Count 218 MPV 9.0 L Sodium 141 Potassium 3.8 Chloride 110 H Carbon Dioxide 25 Anion Gap 6 BUN 22 Creatinine 1.27 Est Cr Clr Drug Dosing 47.4 Est GFR ( Amer) 61.4 Est GFR (Non-Af Amer) 53.0 BUN/Creatinine Ratio 17.3 Glucose 93 Calcium 8.6 Magnesium 1.9 Diagnostic Findings Chest X-Ray 06/05/23 07:00 XR chest 1V portable CLINICAL HISTORY: f/u congestion/pulmonary edema COMPARISON STUDY: Chest radiograph June 04, 2023. FINDINGS: There is no pneumothorax. There are trace bilateral pleural effusions. Pulmonary edema has slightly progressed. Bibasilar opacities have increased. Cardiomegaly is again noted. Mediastinal contours are stable. IMPRESSION: 1. Progression of pulmonary edema. 2. Trace bilateral pleural effusions. 3. Increase in bibasilar opacities. ACT 112: Negative or not required by law. Electronically signed by: Teddy Estrada M.D. 06/05/2023 8:58 AM Medications Administered Apixaban (Apixaban 5 Mg Tablet) 5 mg PO BID [facility] Stop: 07/03/23 20:59 Last Admin: 06/05/23 08:31 Dose: 5 mg Documented By: Admin: 06/04/23 20:16 Dose: 5 mg Documented By: Admin: 06/04/23 08:26 Dose: 5 mg Documented By: Admin: 06/03/23 21:04 Dose: 5 mg Documented By: ARACELI Aspirin (Aspirin 81 Mg Ectab) 81 mg PO DAILY [facility] Stop: 07/04/23 08:59 Last Admin: 06/05/23 08:31 Dose: 81 mg Documented By: Admin: 06/04/23 08:27 Dose: 81 mg Documented By: FAVIO Atorvastatin Calcium (Atorvastatin 40 Mg Tab) 40 mg PO HS [facility] Stop: 07/03/23 21:19 Last Admin: 06/04/23 20:16 Dose: 40 mg Documented By: Admin: 06/03/23 22:07 Dose: 40 mg Documented By: ARACELI Calcium/Vitamin D (Calcium 600mg + Vit D 400 Iu Tab) 1 tab PO DAILY [facility] Stop: 07/04/23 08:59 Last Admin: 06/05/23 08:32 Dose: Not Given Documented By: Admin: 06/04/23 08:27 Dose: 1 tab Documented By: FAVIO Diltiazem HCl 125 mg/ Dextrose 125 mls @ 5 mls/hr IV .Q24H [facility]; Protocol Stop: 07/03/23 14:29 Last Titration: 06/05/23 09:49 Dose: 0 mg/hr, 0 mls/hr Documented By: TARAN Co-signed By: LUDWIN Admin: 06/05/23 08:35 Dose: 5 mg/hr, 5 mls/hr Documented By: TARAN Co-signed By: LUDWIN Titration: 06/05/23 07:06 Dose: 5 mg/hr, 5 mls/hr Documented By: TARAN Co-signed By: LUDWIN Admin: 06/04/23 06:06 Dose: 5 mg/hr, 5 mls/hr Documented By: ARACELI Co-signed By: FAUSTINA Titration: 06/04/23 06:06 Dose: 5 mg/hr, 5 mls/hr Documented By: ARACELI Co-signed By: FAUSTINA Titration: 06/03/23 20:04 Dose: 5 mg/hr, 5 mls/hr Documented By: ARACELI Co-signed By: BABAR Titration: 06/03/23 18:45 Dose: 10 mg/hr, 10 mls/hr Documented By: FAVIO Co-signed By: ARACELI Admin: 06/03/23 14:44 Dose: 5 mg/hr, 5 mls/hr Documented By: NAHUM Co-signed By: DOROTHY Magnesium Sulfate/Dextrose (Magnesium Sulfate / D5w) 1 gm in 100 mls @ 50 mls/hr IV Q2H [facility] Stop: 06/05/23 12:59 Last Admin: 06/05/23 09:39 Dose: 50 mls/hr Documented By: TARAN Metoprolol Tartrate (Metoprolol Tartrate 25 Mg Tab) 25 mg PO Q6H [facility] Stop: 07/03/23 17:59 Last Admin: 06/05/23 06:05 Dose: 25 mg Documented By: Admin: 06/04/23 23:30 Dose: 25 mg Documented By: Admin: 06/04/23 17:41 Dose: 25 mg Documented By: Admin: 06/04/23 12:13 Dose: 25 mg Documented By: Admin: 06/04/23 06:05 Dose: 25 mg Documented By: Admin: 06/04/23 00:12 Dose: 25 mg Documented By: Admin: 06/03/23 18:00 Dose: 25 mg Documented By: FAVIO Pantoprazole Sodium (Pantoprazole 40 Mg Tab) 40 mg PO DAILY [facility]; Protocol Stop: 07/04/23 08:59 Last Admin: 06/05/23 08:32 Dose: 40 mg Documented By: Admin: 06/04/23 08:27 Dose: 40 mg Documented By: FAVIO Prednisone (Prednisone 5 Mg Tab) 5 mg PO DAILY [facility] Stop: 07/04/23 08:59 Last Admin: 06/05/23 08:31 Dose: 5 mg Documented By: Admin: 06/04/23 08:28 Dose: 5 mg Documented By: FAVIO Tamsulosin HCl (Tamsulosin Hcl 0.4 Mg Cap) 0.4 mg PO HS [facility] Stop: 07/03/23 21:19 Last Admin: 06/04/23 20:15 Dose: 0.4 mg Documented By: Admin: 06/03/23 22:07 Dose: 0.4 mg Documented By: ARACELI Discontinued Medications Diltiazem HCl (Diltiazem Hcl 5 Mg/Ml 5 Ml Vial) 10 mg IV NOW STA Stop: 06/03/23 12:42 Last Admin: 06/03/23 12:45 Dose: 10 mg Documented By: DOROTHY Co-signed By: GATITO Sodium Chloride (Nss) 500 mls @ 999 mls/hr IV .Q31M [facility] Stop: 06/03/23 13:11 Last Infusion: 06/03/23 13:20 Dose: 0 mls/hr Documented By: Admin: 06/03/23 12:45 Dose: 999 mls/hr Documented By: DOROTHY Magnesium Sulfate/Dextrose (Magnesium Sulfate / D5w) 1 gm in 100 mls @ 100 mls/hr IV NOW STA Stop: 06/03/23 13:40 Last Infusion: 06/03/23 13:49 Dose: 0 mls/hr Documented By: Admin: 06/03/23 12:47 Dose: 100 mls/hr Documented By: DOROTHY Sodium Chloride (Nss 1000ml) 500 mls @ 999 mls/hr IV .Q31M ONE Stop: 06/03/23 14:46 Last Infusion: 06/03/23 17:03 Dose: 0 mls/hr Documented By: Infusion: 06/03/23 15:00 Dose: 125 mls/hr Documented By: Admin: 06/03/23 14:45 Dose: 999 mls/hr Documented By: NAHUM Digoxin 250 mcg/ Syringe 10 mls @ 2 mls/min IV NOW Stop: 06/04/23 11:53 Last Admin: 06/04/23 12:13 Dose: 2 mls/min Documented By: FAVIO Miscellaneous (Stat Iv Infusion Titration Per Protocol) 1 each N/A NOW STA Stop: 06/03/23 14:17 Last Admin: 06/03/23 14:46 Dose: Not Given Documented By: NAHUM Miscellaneous (Lifitegrast [Xiidra] ~ Order Awaiting Action) 1 each N/A QS [facility] Stop: 07/04/23 00:00 Last Admin: 06/04/23 08:28 Dose: Not Given Documented By: Admin: 06/04/23 00:14 Dose: Not Given Documented By: ARACELI Potassium Chloride (Potassium Chloride Crtab 20 Meq Tabcr) 40 meq PO NOW STA Stop: 06/05/23 08:58 Last Admin: 06/05/23 09:39 Dose: 40 meq Documented By: TARAN PG Care Time/CCT Total # of Minutes Spent Total Time Spent with Patient: Total time spent is greater than 50% in coordination of care (as documented) at patient's floor/unit and/or counseling patient: Coding Level of Care Code 94094 SUB INP/OBS CARE 3/50MIN Diagnoses Atrial fibrillation with rapid ventricular response I48.91 CHF (congestive heart failure) I50.9 Coronary artery disease I25.10 Hypertension I10 Rheumatoid arthritis M06.9 Hyperlipidemia E78.5 Anemia D64.9 Hypothyroidism E03.9 Elevated troponin I level R77.8 Weakness R53.1
--- NOTE | 2023-06-05 12:31 | Cardiology Progress Note ---
Date of Service June 05, 2023 Assessment & Plan (1) Atrial fibrillation with rapid ventricular response: Plan: -onset likely 2 weeks ago. -improved ventricular response on metoprolol and digoxin. -agree with Eliquis 5 mg b.i.d.. (2) Elevated troponin I level: Plan: -minor elevation likely a supply demand mismatch. (3) Acute diastolic CHF (congestive heart failure): Plan: -would add an intravenous diuretic. (4) Coronary artery disease: Plan: -s/p D1 KRISTINE, December 2020. -[employer] mid LAD with good distal collateralization, 70% left PDA. -continue medical management. (5) Hypertension: Plan: -adequate control on current regimen. (6) Hyperlipidemia: Plan: -continue atorvastatin. (7) Aortic regurgitation: Plan: -mild in degree on current echocardiogram. Admission and Anticipated Discharge Date Admission Date: June 03, 2023 Subjective The patient is resting comfortably at the bedside without complaints of chest pain, dyspnea, or palpitations. Physical Exam Physical Exam: In general is well-developed well-nourished white male in no acute distress. HEENT exam is negative. Neck is supple with full carotid upstrokes. No carotid bruits. No JVD. There is no thyromegaly. Cardiovascular exam reveals irregular irregular rhythm with distant heart sounds. No obvious murmurs. Lungs are clear without rales, rhonchi, wheezes. Abdomen is soft without bruits . Extremities reveal intact radial artery pulses bilaterally. Trace pretibial edema is noted. Results & Data Vital Signs (Past 12 Hours) Vital Signs Temp Pulse Resp BP Pulse Ox O2 Del Method 06/05/23 11:52 36.1 C L 113 H 18 114/70 90 Room Air 06/05/23 09:00 Room Air 06/05/23 08:07 37.1 C 86 16 102/68 90 Room Air 06/05/23 06:08 90 107/70 06/05/23 03:13 36.9 C 102 H 16 96/62 L 93 Room Air Diagnostic Findings color television console monitor notes atrial fibrillation with a ventricular response of 90s and 100s. PG Care Time/CCT Total # of Minutes Spent Total Time Spent with Patient: Total time spent is greater than 50% in coordination of care (as documented) at patient's floor/unit and/or counseling patient: Coding Level of Care Code 82567 SUB INP/OBS CARE 350MIN Diagnoses Atrial fibrillation with rapid ventricular response I48.91 Elevated troponin I level R77.8 Acute diastolic CHF (congestive heart failure) I50.31 Coronary artery disease I25.10 Hypertension I10 Hyperlipidemia E78.5 Aortic regurgitation I35.1
[2023-06-05] MEDS ORDERED: FUROSEMIDE INJ 20 MG/2 ML VIAL IV ONE (14:07)
--- NOTE | 2023-06-05 14:55 | Electrocardiogram Report ---
Test Reason : Blood Pressure : / mmHG Vent. Rate : 095 BPM Atrial Rate : 090 BPM P-R Int : 000 ms QRS Dur : 094 ms QT Int : 368 ms P-R-T Axes : 000 022 059 degrees QTc Int : 462 ms Atrial fibrillation with premature ventricular or aberrantly conducted complexes Low voltage QRS Abnormal ECG When compared with ECG of 04-JUN-2023 06:23, No significant change was found Confirmed by Richardson Magaña ([id number]) on 06/05/2023 2:55:04 PM Referred By: Richardson Becerra Confirmed By:Richardson Magaña
[2023-06-05] MEDS: DIGOXIN 0.25 MG TAB PO SCH (15:51)
[2023-06-05] MEDS: ATORVASTATIN 40 MG TAB PO SCH (20:34)
[2023-06-05] MEDS: METOPROLOL TARTRATE 1 MG/ML VIAL IV PRN (21:51)
[2023-06-06] MEDS: METOPROLOL TARTRATE 25 MG TAB PO SCH ×2 (01:31→05:48)
[2023-06-06] MEDS: METOPROLOL TARTRATE 1 MG/ML VIAL IV PRN (07:58)
[2023-06-06] MEDS: PANTOprazole 40 MG TAB PO SCH (08:00)
[2023-06-06] MEDS: CALCIUM 600MG + VIT D 400 IU TAB PO SCH (08:01)
[2023-06-06] MEDS: predniSONE 5 MG TAB PO SCH (08:01)
[2023-06-06] MEDS: ASPIRIN 81 MG ECTAB PO SCH (08:01)
[2023-06-06] MEDS: APIXABAN 5 MG TABLET PO SCH ×2 (08:01→20:18)
[2023-06-06 08:17] LABS: Basophils # (auto) 0.05 K/uL (0-0.2); Basophils % (auto) 0.7 %; Eosinophils % (auto) 5.5 %; Hematocrit (blood only) 31.6 % (42.0-52.0); Hemoglobin 10.5 g/dl (14.0-18.0); Immature Granulocytes # (auto) 0.02 K/uL (0.01-0.20); Immature Granulocytes % (auto) 0.3 %; Lymphocytes # (auto) 2.34 K/uL (1.2-3.4); Lymphocytes % (auto) 32.1 %; Mean Corpuscular Hemoglobin 27.7 pg (25.0-34.0); Mean Corpuscular Hgb Conc 33.2 g/dL (32.0-36.0); Mean Corpuscular Volume 83.4 fL (80.0-100.0); Monocytes # (auto) 0.72 K/uL (0.11-0.59); Monocytes % (auto) 9.9 %; Neutrophils # (auto) 3.75 K/uL (1.40-6.50); Neutrophils % (auto) 51.5 %; Platelet Count 256 K/uL (130-400); RDW Coefficient of Variation 15.8 % (11.5-14.5); RDW Standard Deviation 48.1 fL (36.4-46.3); Red Blood Count 3.79 M/uL (4.70-6.10); White Blood Count 7.28 K/ul (4.8-10.8)
[2023-06-06 08:30] LABS: BUN Creatinine Ratio 18.3 (10-20); Calcium 8.9 mg/dl (8.6-10.3); Creatinine Clr Calc Pharmacy 49.6 ml/min; Est GFR (African American) 65.8 ml/min; Est GFR (Non-African American) 56.8 ml/min; Potassium 3.9 mmol/L (3.5-5.1)
--- NOTE | 2023-06-06 10:42 | Hospitalist Progress Note ---
Date of Service June 06, 2023 Assessment & Plan (1) Atrial fibrillation with rapid ventricular response: Plan: New onset afib - CHADSVASC2- 4- currently on stroke prevention with Apixaban 5mg PO BID- tolerating without bruising or bleeding noted - ECHO with EF persevered at 55-60% with mild LVH- No RWMA noted - Currently being limited for increasing BB with blood pressure - Continue with uptitration of BB as able - Poorly controlled overnight- however PRN metoprolol only given once - Will also hold his Flomax with his lower blood pressures as well- restart when able - Maintain Mag >2.0 and K>4.0 - STOP BANG - 3 could consider SOWMYA screening as outpatient to decrease overall CV mortality - Appreciate Cardiology Consultation Dispo- continue PCU for monitoring of rythm and possibility for IV push dose BB (2) CHF (congestive heart failure): Plan: Patient with concentric LVH with preserved EF - This is likely created pulmonary edema in the setting of afib - Negative fluid balance following Lasix administration yesterday- JOSE likely inaccurate this morning as recorded as -3.1 Liters - Decreased crackles on exam- await cardiology evaluation today and consider re- dosing if desired - Continue with BB, - ARB on hold currently with hypotension (3) Coronary artery disease: Plan: History of CAD with PCI in 2020 - HScTNI elevation on admission likely type II demand from elevated HR - NO ischemic ECG changes - Continue asa, BB, statin, (4) Hypertension: Plan: Chronic - Currently with ARB on hold and hypotensive- likely rate and rythm related - as above (5) Rheumatoid arthritis: Plan: Continue Prednisone 5mg daily - AM Cortisol 11.93 - May need stress dose follow (6) Hyperlipidemia: Plan: Chronic - continue statin (7) Anemia: Plan: Appears around baseline Monitor for bleeding once starting AC (noting hx microscopic hematuria per recent Nephro notes) - slight downtrend today with noting fluid volume status + - diurese as above if able - trend HGB/HCT in morning - BUN not elevated and no reports of bleeding per patient/nursing (8) Hypothyroidism: Plan: not on medications, repeat TSH wnl (9) Elevated troponin I level: Plan: Resolved- likely tytpe II demand no acute ECG changes (10) Weakness: Plan: Resolving with rate control Admission and Anticipated Discharge Date Admission Date: June 03, 2023 Supervising Physician Co-Signing Physician Notes SHIRLEY Supervision Note: I did not personally see or examine the patient. I verified all ceballos points and agree with SHIRLEY Issa with the following exceptions and/or additions: none Subjective Patient is HD #3 for admission with NOAF with rapid ventricular response. Patient with discontinuation of Diltiazem gtt yesterday with improvements in his BP however HR remained in the 110s-130s through PM with only one dose of PRN Lopressor given. This morning his HR is 110's occasionally in the 120s- BP is marginal at this time. Will increase his Metoprolol to 50mg PO q6 hour and IV PRN Lopressor given at 0900. He reports no dizziness, chest pain/palpitations, or dyspnea. BP is likely HR related however is limiting effective control of his HR. Continue with titration as able and follow hemodynamic response. Appreciate Cardiology assistance. Following through the day - HR is better controlled with BB dosings however still with HR > 110's. Continue to follow CODE: FULL Physical Exam Physical Exam: PHYSICAL EXAM: General: awake, alert, no apparent distress Head: Normocephalic, atraumatic ENT: PERRL, EOMI, no pharyngeal exudate, mucous membranes moist Neuro: AAO x 3, speech clear and appropriate, strength intact bilaterally 5/5, sensation intact and equal all extremities and dermatomes, no pronator drift Chest: equal rise and fall of the chest, no accessory muscle use, scattered crackles in bases Cardiac: irregular rate and rhythm, telemetry reviewed- afib rate controlled, skin warm dry, cap refill <3 seconds, peripheral pusles +2 no JVD, no murmur, GI: NABS x 4 quadrants, soft, nontender to palpation, no rebound, guarding or tenderness : Spontaneously voiding, no pain, no CVA tenderness, Psych: Normal mood and affect Results & Data Results & Data Vital Signs (Past 12 Hours) Vital Signs Temp Pulse Pulse Resp BP BP Pulse Ox 06/06/23 09:00 06/06/23 08:13 121 H 99/61 L 06/06/23 07:40 37.4 C 129 H 19 108/80 92 06/06/23 07:58 128 H 104/74 06/06/23 05:49 117 H 122/76 06/06/23 02:31 37.0 C 120 H 18 103/73 95 06/05/23 23:10 36.8 C 114 H 18 129/85 91 06/05/23 22:54 124 H 121/81 O2 Del Method 06/06/23 09:00 Room Air 06/06/23 08:13 06/06/23 07:40 Room Air 06/06/23 07:58 06/06/23 05:49 06/06/23 02:31 Room Air 06/05/23 23:10 Room Air 06/05/23 22:54 Laboratory Results Abnormal lab results 06/06/23 06/06/23 06/06/23 Range/Units 07:51 07:51 07:51 RBC 3.79 L (4.70-6.10) M/uL Hgb 10.5 L (14.0-18.0) g/dl Hct 31.6 L (42.0-52.0) % RDW Std Deviation 48.1 H (36.4-46.3) fL RDW Coeff of Demond 15.8 H (11.5-14.5) % MPV 9.0 L (9.4-12.4) fL [place] # (Auto) 0.72 H (0.11-0.59) K/uL Chloride 108 H (98-107) mmol/L Glucose 106 H (70-99(Fasting)) mg/dl Digoxin 0.5 L (0.8-2.0) ng/ml Medications Administered Active Medications Acetaminophen (Acetaminophen 325 Mg Tab) 650 mg PO Q4H PRN PRN Reason: Pain or Fever Stop: 07/03/23 15:48 Apixaban (Apixaban 5 Mg Tablet) 5 mg PO BID [facility] Stop: 07/03/23 20:59 Last Admin: 06/06/23 08:01 Dose: 5 mg Artificial Tears (Artificial Tears) 1 drops OP QID PRN PRN Reason: Dryness Stop: 07/04/23 10:53 Aspirin (Aspirin 81 Mg Ectab) 81 mg PO DAILY [facility] Stop: 07/04/23 08:59 Last Admin: 06/06/23 08:01 Dose: 81 mg Atorvastatin Calcium (Atorvastatin 40 Mg Tab) 40 mg PO HS [facility] Stop: 07/03/23 21:19 Last Admin: 06/05/23 20:34 Dose: 40 mg Calcium/Vitamin D (Calcium 600mg + Vit D 400 Iu Tab) 1 tab PO DAILY [facility] Stop: 07/04/23 08:59 Last Admin: 06/06/23 08:01 Dose: Not Given Digoxin (Digoxin 0.25 Mg Tab) 0.25 mg PO DAILY@1600 [facility] Stop: 07/05/23 15:59 Last Admin: 06/05/23 15:51 Dose: 0.25 mg Diltiazem HCl 125 mg/ Dextrose 125 mls @ 5 mls/hr IV .Q24H [facility]; Protocol Stop: 07/03/23 14:29 Last Titration: 06/05/23 09:49 Dose: Infused Metoprolol Tartrate (Metoprolol Tartrate 1 Mg/Ml Vial) 5 mg IV Q4 PRN PRN Reason: HR >110 sustained Stop: 07/05/23 15:59 Last Admin: 06/06/23 07:58 Dose: 5 mg Metoprolol Tartrate (Metoprolol Tartrate 50 Mg Tab) 50 mg PO Q6H [facility] Stop: 07/06/23 11:59 Last Admin: 06/06/23 10:47 Dose: 50 mg Ondansetron HCl (Ondansetron Inj 2 Mg/Ml 2 Ml Vial) 4 mg IV Q6H PRN PRN Reason: Nausea Stop: 07/03/23 15:48 Pantoprazole Sodium (Pantoprazole 40 Mg Tab) 40 mg PO DAILY [facility]; Protocol Stop: 07/04/23 08:59 Last Admin: 06/06/23 08:00 Dose: 40 mg Potassium Chloride (Potassium Chloride Crtab 20 Meq Tabcr) 20 meq PO QAM [facility] Stop: 07/06/23 10:44 Last Admin: 06/06/23 11:29 Dose: 20 meq Prednisone (Prednisone 5 Mg Tab) 5 mg PO DAILY [facility] Stop: 07/04/23 08:59 Last Admin: 06/06/23 08:01 Dose: 5 mg Tamsulosin HCl (Tamsulosin Hcl 0.4 Mg Cap) 0.4 mg PO HS [facility] Stop: 07/03/23 21:19 Last Admin: 06/04/23 20:15 Dose: 0.4 mg PG Care Time/CCT Total # of Minutes Spent Total Time Spent with Patient: Total time spent is greater than 50% in coordination of care (as documented) at patient's floor/unit and/or counseling patient: Coding Level of Care Code 76308 SUB INP/OBS CARE 3/50MIN Medical Decision Making High Complexity Diagnoses Atrial fibrillation with rapid ventricular response I48.91 CHF (congestive heart failure) I50.9 Coronary artery disease I25.10 Hypertension I10 Rheumatoid arthritis M06.9 Hyperlipidemia E78.5 Anemia D64.9 Hypothyroidism E03.9 Elevated troponin I level R77.8 Weakness R53.1 Time Spent (min) 55 Comment multiple re-assessments for HR control through day and hemodnaymics
[2023-06-06] MEDS: METOPROLOL TARTRATE 50 MG TAB PO SCH ×3 (10:47→23:11)
[2023-06-06] MEDS: POTASSIUM CHLORIDE CRTAB 20 MEQ TABCR PO SCH (11:29)
[2023-06-06] MEDS: DIGOXIN 0.25 MG TAB PO SCH (15:50)
--- NOTE | 2023-06-06 17:51 | Cardiology Progress Note ---
Date of Service June 06, 2023 Assessment & Plan (1) Atrial fibrillation with rapid ventricular response: Plan: He continues to have elevated ventricular rates. Metoprolol dose increased to 50 mg q.6 hours. Continue digoxin. I will order a digoxin level for tomorrow to see if another bolus is worthwhile. He was started on systemic anticoagulation. (2) Elevated troponin I level: Plan: -minor elevation likely a supply demand mismatch. (3) Acute diastolic CHF (congestive heart failure): Plan: . He lung examination benign. (4) Coronary artery disease: Plan: -s/p D1 KRISTINE, December 2020. -[employer] mid LAD with good distal collateralization, 70% left PDA. -continue medical management. (5) Hypertension: Plan: -adequate control on current regimen. (6) Hyperlipidemia: Plan: -continue atorvastatin. (7) Aortic regurgitation: Plan: -mild in degree on current echocardiogram. Admission and Anticipated Discharge Date Admission Date: June 03, 2023 Subjective This afternoon the patient claimed he feeling well. His main complaint was simply fatigue and feeling tired. However, clinically ambulatory around the santos without significant breathing difficulty, chest pain or palpitation. No significant dizziness or lightheadedness. Review of Systems Review of Systems: Per HPI Physical Exam Physical Exam: The patient is alert and oriented. Mood and affect appeared normal. He answered all questions appropriately. HEENT: Pupils are equal and reactive to light and accommodation. Extraocular movements are intact. The sclerae are anicteric. Neuro: Cranial nerves intact Lungs: Clear to auscultation bilaterally. He has good air movement without use of accessory muscles. No rales wheezes or rhonchi. Cardiac: Heart demonstrates an irregular rate and rhythm. Normal S1 and S2. No murmurs on examination. Pulses: The patient has palpable radial pulses bilaterally that are equal in intensity Extremities: There was no evidence of hypoperfusion. There is no cyanosis or clubbing. There is no edema. Skin: I did not appreciate any rashes on examination today. Results & Data Vital Signs (Past 12 Hours) Vital Signs Temp Pulse Pulse Resp BP BP Pulse Ox 06/06/23 15:50 106 H 06/06/23 15:14 36.6 C 105 H 18 104/74 105 H 06/06/23 11:35 36.7 C 88 18 102/68 96 06/06/23 09:00 06/06/23 08:13 121 H 99/61 L 06/06/23 07:40 37.4 C 129 H 19 108/80 92 06/06/23 07:58 128 H 104/74 06/06/23 05:49 117 H 122/76 O2 Del Method 06/06/23 15:50 06/06/23 15:14 Room Air 06/06/23 11:35 Room Air 06/06/23 09:00 Room Air 06/06/23 08:13 06/06/23 07:40 Room Air 06/06/23 07:58 06/06/23 05:49 Laboratory Results Abnormal Lab Results 06/06/23 06/06/23 06/06/23 07:51 07:51 07:51 WBC 7.28 RBC 3.79 L Hgb 10.5 L Hct 31.6 L MCV 83.4 MCH 27.7 MCHC 33.2 RDW Std Deviation 48.1 H RDW Coeff of Demond 15.8 H Plt Count 256 MPV 9.0 L Immature Gran % (Auto) 0.3 Neut % (Auto) 51.5 Lymph % (Auto) 32.1 Sevier % (Auto) 9.9 Eos % (Auto) 5.5 Baso % (Auto) 0.7 Neut # (Auto) 3.75 Lymph # (Auto) 2.34 Sevier # (Auto) 0.72 H Eos # (Auto) 0.40 Baso # (Auto) 0.05 Immature Gran # (Auto) 0.02 Sodium Potassium Chloride Carbon Dioxide Anion Gap BUN Creatinine Est Cr Clr Drug Dosing Est GFR ( Amer) Est GFR (Non-Af Amer) BUN/Creatinine Ratio Glucose Calcium Magnesium Cortisol AM Sample 11.93 Digoxin 0.5 L 06/06/23 07:51 WBC RBC Hgb Hct MCV MCH MCHC RDW Std Deviation RDW Coeff of Demond Plt Count MPV Immature Gran % (Auto) Neut % (Auto) Lymph % (Auto) Sevier % (Auto) Eos % (Auto) Baso % (Auto) Neut # (Auto) Lymph # (Auto) Sevier # (Auto) Eos # (Auto) Baso # (Auto) Immature Gran # (Auto) Sodium 141 Potassium 3.9 Chloride 108 H Carbon Dioxide 27 Anion Gap 6 BUN 22 Creatinine 1.20 Est Cr Clr Drug Dosing 49.6 Est GFR ( Amer) 65.8 Est GFR (Non-Af Amer) 56.8 BUN/Creatinine Ratio 18.3 Glucose 106 H Calcium 8.9 Magnesium 2.0 Cortisol AM Sample Digoxin Diagnostic Findings 06/04/2023: Normal LV systolic function with ejection fraction of 55-60%. Mild aortic regurgitation. Mild LVH. PG Care Time/CCT Total # of Minutes Spent Total Time Spent with Patient: Total time spent is greater than 50% in coordination of care (as documented) at patient's floor/unit and/or counseling patient: Coding Level of Care Code 27908 SUB INP/OBS CARE 2/35MIN Diagnoses Atrial fibrillation with rapid ventricular response I48.91 Elevated troponin I level R77.8 Acute diastolic CHF (congestive heart failure) I50.31 Coronary artery disease I25.10 Hypertension I10 Hyperlipidemia E78.5 Aortic regurgitation I35.1
[2023-06-06] MEDS: ATORVASTATIN 40 MG TAB PO SCH (20:18)
[2023-06-07] MEDS: METOPROLOL TARTRATE 50 MG TAB PO SCH (05:47)
[2023-06-07 07:15] LABS: Basophils # (auto) 0.04 K/uL (0-0.2); Basophils % (auto) 0.6 %; Eosinophils # (auto) 0.32 K/uL (0-0.50); Eosinophils % (auto) 4.9 %; Hematocrit (blood only) 30.4 % (42.0-52.0); Immature Granulocytes # (auto) 0.01 K/uL (0.01-0.20); Immature Granulocytes % (auto) 0.2 %; Lymphocytes % (auto) 38.4 %; Mean Corpuscular Hemoglobin 27.2 pg (25.0-34.0); Mean Corpuscular Hgb Conc 32.9 g/dL (32.0-36.0); Mean Corpuscular Volume 82.8 fL (80.0-100.0); Mean Platelet Volume 9.2 fL (9.4-12.4); Monocytes # (auto) 0.79 K/uL (0.11-0.59); Monocytes % (auto) 12.1 %; Neutrophils # (auto) 2.85 K/uL (1.40-6.50); Neutrophils % (auto) 43.8 %; Platelet Count 249 K/uL (130-400); RDW Coefficient of Variation 15.3 % (11.5-14.5); RDW Standard Deviation 46.8 fL (36.4-46.3); Red Blood Count 3.67 M/uL (4.70-6.10); White Blood Count 6.51 K/ul (4.8-10.8)
[2023-06-07 07:35] LABS: Calcium 8.9 mg/dl (8.6-10.3); Creatinine Clr Calc Pharmacy 48.6 ml/min; Est GFR (African American) 64.5 ml/min; Est GFR (Non-African American) 55.6 ml/min; Potassium 3.7 mmol/L (3.5-5.1)
--- NOTE | 2023-06-07 07:42 | Hospitalist Progress Note ---
Date of Service June 07, 2023 Assessment & Plan (1) Atrial fibrillation with rapid ventricular response: Plan: New onset afib - CHADSVASC2- 4- currently on stroke prevention with Apixaban 5mg PO BID- tolerating without bruising or bleeding noted - ECHO with EF persevered at 55-60% with mild LVH- No RWMA noted - Currently being limited for increasing BB with blood pressure - Continue with uptitration of BB as able - Poorly controlled overnight- however PRN metoprolol only given once - Will also hold his Flomax with his lower blood pressures as well- restart when able - Maintain Mag >2.0 and K>4.0 - STOP BANG - 3 could consider SOWMYA screening as outpatient to decrease overall CV mortality - Appreciate Cardiology Consultation Dispo- continue PCU for monitoring of rythm and possibility for IV push dose BB (2) CHF (congestive heart failure): Plan: Patient with concentric LVH with preserved EF - This is likely created pulmonary edema in the setting of afib - Negative fluid balance following Lasix administration yesterday- JOSE likely inaccurate this morning as recorded as -3.1 Liters - Decreased crackles on exam- await cardiology evaluation today and consider re- dosing if desired - Continue with BB, - ARB on hold currently with hypotension (3) Coronary artery disease: Plan: History of CAD with PCI in 2020 - HScTNI elevation on admission likely type II demand from elevated HR - NO ischemic ECG changes - Continue asa, BB, statin, (4) Hypertension: Plan: Chronic - Currently with ARB on hold and hypotensive- likely rate and rythm related - as above (5) Rheumatoid arthritis: Plan: Continue Prednisone 5mg daily - AM Cortisol 11.93 - May need stress dose follow (6) Hyperlipidemia: Plan: Chronic - continue statin (7) Anemia: Plan: Appears around baseline Monitor for bleeding once starting AC (noting hx microscopic hematuria per recent Nephro notes) - slight downtrend today with noting fluid volume status + - diurese as above if able - trend HGB/HCT in morning - BUN not elevated and no reports of bleeding per patient/nursing (8) Hypothyroidism: Plan: not on medications, repeat TSH wnl (9) Elevated troponin I level: Plan: Resolved- likely tytpe II demand no acute ECG changes (10) Weakness: Plan: Resolving with rate control Admission and Anticipated Discharge Date Admission Date: June 03, 2023 Results & Data Results & Data Vital Signs (Past 12 Hours) Vital Signs Temp Pulse Pulse Resp BP Pulse Ox O2 Del Method 06/07/23 02:34 36.7 C 93 H 18 105/68 94 Room Air 06/06/23 22:30 108 H 06/06/23 23:08 36.8 C 81 18 104/57 L 91 Room Air 06/06/23 22:13 Room Air 06/06/23 20:26 Room Air PG Care Time/CCT Total # of Minutes Spent Total Time Spent with Patient: Total time spent is greater than 50% in coordination of care (as documented) at patient's floor/unit and/or counseling patient: Coding Diagnoses Atrial fibrillation with rapid ventricular response I48.91 CHF (congestive heart failure) I50.9 Coronary artery disease I25.10 Hypertension I10 Rheumatoid arthritis M06.9 Hyperlipidemia E78.5 Anemia D64.9 Hypothyroidism E03.9 Elevated troponin I level R77.8 Weakness R53.1
[2023-06-07] MEDS: CALCIUM 600MG + VIT D 400 IU TAB PO SCH (08:29)
[2023-06-07] MEDS: APIXABAN 5 MG TABLET PO SCH (09:04)
[2023-06-07] MEDS: PANTOprazole 40 MG TAB PO SCH (09:04)
[2023-06-07] MEDS: ASPIRIN 81 MG ECTAB PO SCH (09:04)
[2023-06-07] MEDS: predniSONE 5 MG TAB PO SCH (09:04)
[2023-06-07] MEDS: POTASSIUM CHLORIDE CRTAB 20 MEQ TABCR PO SCH (09:04)
[2023-06-07] MEDS ORDERED: METOPROLOL SUCC 50MG EXT REL TAB PO SCH (10:00)
--- NOTE | 2023-06-07 13:37 | Discharge Summary ---
Discharge Summary Date of Service June 07, 2023 Admission HPI Per Admitting Provider 82yo male with PMHx significant for CAD, HTN, HLD, Hypothyroidism, Rheumatoid Arthritis, GERD, presented for generalized weakness, shortness of breath and palpitations/fluttering sensation worsening over this past weekend. Unclear actual duration. On admission, found to be in afib w/ RVR, new onset. EKG w/ rates to 170s, given dose IV cardizem. When asked about when symptoms initially started, patient notes two 's ago he went to the gym and was feeling ok but a little off and drank about 16oz of water and went inside to rest and he noted a normal pulse rate (checks on his watch). He noted the symptoms lasted about an hour of chest pressure to the center of his chest (prior cardiac symptoms were L sided chest pain, he reports this does not feel similar to prior events). He notes he then on Saturday went to pain with friends, had lunch and took a nap but then when he went to an event for new [employer] opening he noted he was more short of breath than usual walking across the parking lot which is unusual for him as he's typically at the gym 3x/week. He notes then over the weekend he was doing normal activity and called Dr Becerra's office on Saturday and asked "are there any labs for me" as he was feeling quite off. He then saw primary care last week with low BP and decision to hold losartan/HCTZ combo and continue losartan by itself. He notes BPs were around 101 systolic in the office which was similar to his home electronic BP cuff. BP then over the weekend on home cuff not able to be obtained as "too much movement" reported by his machine. He notes his neighbor, Dr Diana who had retired years back, had called to check on him this morning to see how he was feeling and they reviewed his labs and reporting low energy, his BP was checked manually and was low but he is unsure what the actual reading was. He notes his doctor friend then told him his HR was in the 150s and irregular. He had been holding further naproxen at instruction of PCP/rheum for elevated kidney function. He notes he had some cramping in his right leg last week. He notes he's had some swelling (no calf tenderness at present) but he feels slightly more swollen than normal. noted normal PAD testing in past (per patient). Told to hold further NSAIDs, had been on prednisone daily but he did take a naproxen this morning to see if that helped but it did not. Had prior been on Synthroid but had been stable off such however recent TSH 5.3 last week but normal on current check. Not on synthyroid at present. Given 500cc bolus by ER provider, additional IVF ordered w/ Cardizem gtt. Decision to admit. Full code BP improved to 135/85 most recently and able to ambulate from bathroom w/o dizziness despite HRs still in 130-140s CXR w/ cardiomegaly with mild interstitial pulmonary edema and trace bilateral effusions. He notes he does get some gurgling sensation at night/something sensation in throat but that maybe dry cough. Does not have to sleep in recliner or anything like that, no known hx SOWMYA, and sleeps typically with one pillow at night. No chills/fever, no abdominal pain/nausea or vomiting at present. Questions/concerns addressed. Admission Exam Per Admitting Provider General: WD/WN male sitting up in bed, just ambulated back from bathroom, NAD HEENT: head normocephalic, atraumatic, mmm, trachea midline, +JVD Resp: diminished in the bases, faint expiratory wheezing, no crackles/rales, 94% on RA CV: irregularly irregular, rates in 140s, +murmur, 1+ bilateral LE edema (RLE>LLE edema), calves nontender and pulses present GI: +BS, soft/nontender ; no hurtado MSK/Neuro: no focal deficit, generalized weakness, no slurred speech/facial droop Psych: alert and oriented x 3, cooperative with exam Skin: perfused, no obvious lesions/rashes Principal Dx & Hospital Course #1 = Principal Diagnosis (1) Atrial fibrillation with rapid ventricular response: New onset afib - CHADSVASC2- 4- currently on stroke prevention with Apixaban 5mg PO BID- tolerating without bruising or bleeding noted - ECHO with EF persevered at 55-60% with mild LVH- No RWMA noted - Appreciate Cardiology Consultation, continue metoprolol succinate 200mg PO daily and digoxin 0.25mg daily, with Cardiology follow up (2) CHF (congestive heart failure): Patient with concentric LVH with preserved EF - This is likely created pulmonary edema in the setting of afib - Negative fluid balance following Lasix administration earlier this admission - Lungs CTA on day of discharge, did not send on diuretics as believe fluid overload was due to significantly elevated heart rates (3) Coronary artery disease: History of CAD with PCI in 2020 - HScTNI elevation on admission likely type II demand from elevated HR - NO ischemic ECG changes - Continue asa, BB, statin (4) Hypertension: Chronic - Currently with ARB on hold and hypotensive- likely rate and rythm related , continue to hold for now and follow up with Cardiology - as above (5) Rheumatoid arthritis: Continue Prednisone 5mg daily - AM Cortisol 11.93, no stress dose given (6) Hyperlipidemia: Chronic - continue statin (7) Anemia: Appears around baseline, Hgb on day of discharge of 10 (8) Hypothyroidism: Not on medications, repeat TSH wnl (9) Elevated troponin I level: Resolved- likely type II demand no acute ECG changes (10) Weakness: Resolving with rate control Discharge Exam Constitutional WD/WN, vitals as above Cardiovascular HR irregularly irregular, non tachycardic Psychiatric A+Ox3, euthymic affect Updated Medication List Medication Instructions Recorded Confirmed Type multivitamin (Daily Multi-Vitamin 1 tab PO DAILY 07/15/19 06/03/23 History tablet) lifitegrast 5 % eye drops in a 1 drp ophthalmic (eye) BID 09/16/20 06/03/23 History dropperette (Xiidra) aspirin 81 mg tablet,delayed 81 mg PO DAILY 10/24/20 06/03/23 History release vit C 50 mg-E 15 unit-zinc cit 4.5 1 tab PO DAILY 11/20/21 06/03/23 History mg-lutein 2.5 mg-zeaxan chew tablet ([facility]) atorvastatin 40 mg tablet 40 mg PO DAILY #90 tabs 10/08/22 06/03/23 Rx prednisone 5 mg tablet 5 mg PO DAILY #90 tabs 03/06/23 06/03/23 Rx adalimumab 40 mg/0.4 mL 40 mg (0.4 mL) subcut Q14D #2 ea 04/10/23 06/03/23 Rx subcutaneous pen kit (Humira(CF) Pen) omeprazole 20 mg capsule,delayed 20 mg PO DAILY #90 caps 04/12/23 06/03/23 Rx release Vitamin D3 (calcium cit-phos) 1,000 units PO DAILY 06/03/23 06/03/23 History apixaban 5 mg tablet (Eliquis) 5 mg PO BID 30 days #60 tabs 06/07/23 Rx digoxin 250 mcg (0.25 mg) tablet 0.25 mg PO DAILY@1600 30 days #30 06/07/23 Rx tabs metoprolol succinate 200 mg 200 mg PO DAILY #30 tabs 06/07/23 Rx tablet,extended release 24 hr (Toprol XL) Hospital Stay Data Consultations 06/03/23 14:23 ED Decision to Admit Stat 06/03/23 15:49 Consult Cardiology Routine Diagnostic Imagining Performed 06/03/23 15:49 US venous doppler LE RT Urgent Pending Results Patient Have Any Pending Studies at Discharge: No Discharge Instructions Given to Patient (Per Discharging Provider) You were admitted for evaluation and management of elevation in your heart rate, causing heart strain and fluid build up into the lungs. With time, water pills, and medications to help control the heart rate, your symptoms improved. You were started on metoprolol succinate, 200 milligrams daily for your heart rate. You were also started on digoxin, 0.25milligrams daily. For blood thinning you were started on Eliquis twice daily. You should try to avoid naproxen, Aleve, Advil, Motrin, ibuprofen when on Eliquis. Instead, try Tylenol for aches and pains. We have STOPPED your losartan and Flomax due to your blood pressure. You can follow up your blood pressure with your family doctor. You should have follow up with Dr. Hyatt about your heart rates. Keep an eye on them, and if they are sustained above 100-120 or you feel lightheaded, short of breath, or have chest discomfort, call the heart doctor. His number is attached to this paperwork. If you have an insurance coverage issue for any of your medications, call the hospital at [phone] and ask to speak to Dr. Wolfe (your discharging doctor). Total Time Total Time Spent Total Time Spent (In Minutes): 35 min Coding Level of Care Code 49842 INP/OBS DISCH >30 MIN Diagnoses Atrial fibrillation with rapid ventricular response I48.91 CHF (congestive heart failure) I50.9 Coronary artery disease I25.10 Hypertension I10 Rheumatoid arthritis M06.9 Hyperlipidemia E78.5 Anemia D64.9 Hypothyroidism E03.9 Elevated troponin I level R77.8 Weakness R53.1
== END 2023-06-07 14:40 | disposition home or self-care (01) | DRG 308 ==
LOC: ED 12:24 → 2S 14:40 → SUATTDRO 14:40 → 2S 15:05 → 2E 06-06 22:03